=== PATIENT | female | born 1960 | race Caucasian/White ===

== ENCOUNTER 2016-10-22 19:55 | Emergency (ER) | payer OTHER, MEDICARE ==
[~2016-10-22 19:55] MED LIST: ABILIFY10 M1 PO; AMBIEN 10MG10 MG PO; AMOXICILLIN500 M3 PO; CALCIUM 600 +1 EA11 PO; CARVEDILOL6.25 M1 PO; CLEOCIN HCL300 MG PO; CLOPIDOGREL75 M1 PO; COREG3.125 MG PO; DILAUDID2 M1 PO; DOXYCYCLINE HY100 M2 PO; DOXYCYCLINE HY100 M4 PO; EFFEXOR XR150 MG PO; ENDOCET 325 MG-1 TA1 PO; FOLIC ACID 1 MG PO; GABAPENTIN400 M1 PO; GOOD SENSE ASP325 MG PO; HUMALOG100 U/ML SC; HUMALOG100 UNIT/2 SC; HYDROMORPHONE HC2 M1 PO; KEFLEX250 M1 PO; LANTUS SOL100 UNIT/1 SC; LASIX40 M1 PO; LASIX40 MG PO; LEVEMIR100 U/ML SC; LEVEMIR100 UNIT/1 SC; LEVOTHYROXIN0.175 MG PO; LEVOTHYROXINE0.15 MG PO; LEVOTHYROXINE200 MC1 PO; LIPITOR80 M1 PO; LISINOPRIL5 M1 PO; LYRICA100 MG PO; LYRICA150 MG PO; NORCO 325 MG-51 TAB PO; NOVOLOG100 U/ML SC; NOVOLOG100 UNIT/2 SC; OXYCODONE-ACET1 EACH PO; PERCOCET 325 MG1 TA2 PO; PERCOCET 5-3251 EACH PO; POLYTRIM EYE DR10 ML OPH; PRINIVIL20 MG PO; PROTONIX 40MG T40 MG PO; ROCALTROL0.25 MCG PO; TRAMADOL50 MG PO; VENLAFAXINE HC150 MG PO; VENTOLIN HFA18 GM INH; VICODIN5-300 PO; XANAX0.5 MG PO; XANAX2 MG PO; [UNRECOGNIZED DRUG - OTHER] PO
--- NOTE | 2016-10-22 20:01 | ED GENERAL ADULT ---
History of Present Illness General Chief Complaint: Fall Stated Complaint: S/P FALL Source: patient, old records, EMS Exam Limitations: confusion Vital Signs & Intake/Output Vital Signs & Intake/Output Vital Signs Date Time Temp Pulse Resp B/P Pulse O2 O2 Flow FiO2 Ox Delivery Rate 10/224 96.4 64 20 142/70 100 Room Air 10/22 1999 96.8 88 22 146/70 98 Allergies Coded Allergies: NSAIDS (Non-Steroidal Anti-Inflamma (TONGUE SWELLING 01/20/16) ibuprofen (TONGUE SWELLING 01/20/16) codeine ("HEART FEELS FUNNY" 03/12/16) ketorolac (From TORADOL) (NAUSEA 03/12/16) lithium (HALLUCINATIONS 03/12/16) tramadol (vomit 03/12/16) Reconcile Medications Aripiprazole (Abilify) 10 MG TABLET 1 TAB PO DAILY SCHIZOPHRENIA (Reported) Aspirin 325 MG TAB 1 TAB PO DAILY HEART/BLOOD (Reported) Atorvastatin Calcium (Lipitor) 80 MG TAB 1 TAB PO DAILY CHOLESTEROL (Reported ) Calcium Carbonate/Vitamin D3 (Calcium 600 + Vit D 400 Tablet) 1 EACH TABLET 1 TAB PO TID CALCIUM SUPPLEMENT Carvedilol 6.25 MG TABLET 1 TAB PO BID HEART (Reported) CLOPIDOGREL BISULFATE (Clopidogrel) 75 MG TAB 1 TAB PO DAILY BLODOD THINNER ( Reported) Doxycycline Hyclate 100 MG CAPSULE 1 CAP PO BID PERIORBITAL CELLULITIS Furosemide (Lasix) 40 MG TABLET 40 MG PO BID FLUID RETENTION Insulin Aspart (Novolog) 100 UNIT/1 ML VIAL DIABETES (Reported) finger stick glucose units to administer 80 - 150 0 units 151 - 200 2 units 201 - 250 4 units 251 - 300 6 units 301 - 350 8 units 351 - 400 10 units more than 400 mg/dL 12 units and call Insulin Detemir (Levemir) 100 UNIT/1 ML VIAL 30 UNITS SC BID BLOOD SUGARS Levothyroxine Sodium 200 MCG TABLET 1 TAB PO DAILY THYROID (Reported) Lisinopril 5 MG TABLET 5 MG PO DAILY KIDNEY HEALTH Oxycodone HCl/Acetaminophen (Percocet 5-325 MG Tablet) 5 MG-325 MG TABLET 1 TAB PO BID PRN PAIN Polytrim (Polytrim Eye Drops) 10,000 UNIT-1 MG/ML DROPS 1 GTT OPH Q6 CONJUNCTIVITIS Pregabalin (Lyrica) 100 MG CAP 1 CAP PO BID PAIN (Reported) VENLAFAXINE HCL (Venlafaxine HCl ER) 150 MG CER 1 CAP PO DAILY MENTAL HEALTH (Reported) Triage Note: PER PT TRIPPED OVER THINGS ON FLOOR AND NEXT THING SHE REMEMBERS IS WAKING UP WITH FACE AGAINST DOOR. NO OBVIOUS TRAUMA NOTED TO FACE, PT APPEARS ALTERED BUT DENIES DRUG OR ETOH USE, ANSWERS QUESTIONS APPROP, BUT SLOWLY. PT WITH LONG STANDING WOUNDS TO RLE, DRESSING IN PLACE, WOUND CARED FOR BY [facility]. Triage Nurses Notes Reviewed? yes HPI: Patient told EMS that she tripped over her own feet and fell forward and hit her head on the door. Patient is unsure if she lost consciousness. Patient was slightly confused upon EMS arrival. Upon presentation to the emergency room patient does not remember falling. Patient does not think that she had any chest pain or palpitations prior to the episode but is not sure. At the hospital and there is 2017 hours she is confused over recent events. Patient is complaining of right-sided neck pain that increases with movement. There is no radiation. She rates the pain as 7 out of 10. There is no weakness or numbness. The pain is aching in nature. Past History Travel History Traveled to [place] past 21 day No Medical History Any Pertinent Medical History? 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 Other Medical Hx: Polysubstance abuse (heroin, cocaine) History of MRSA: No History of VRE: No History of CDIFF: No Surgical History Surgical History: , knee replacement (left), laminectomy, LEFT bka ( 2013) s/p right TMA s/p thyroidectomy s/p right carpal tunnel surgery s/p bone spur removal left wrist and left heel PTCA WITH STENT Psychosocial History Who do you live with [facility] at Home Nursing What is your primary language French Tobacco Use: Never used ETOH Use: denies use Illicit Drug Use: denies illicit drug use Family History Family History, If Any: Relation not specified for: *No pertinent family history Hx Contributory? No Review of Systems Review of Systems Constitutional: Reports: no symptoms. EENTM: Reports: no symptoms. Respiratory: Reports: no symptoms. Cardiovascular: Reports: no symptoms. GI: Reports: no symptoms. Genitourinary: Reports: no symptoms. Musculoskeletal: Reports: see HPI, neck pain. Skin: Reports: no symptoms. Neurological/Psychological: Reports: no symptoms. Hematologic/Endocrine: Reports: no symptoms. Immunologic/Allergic: Reports: no symptoms. All Other Systems: Reviewed and Negative Physical Exam Physical Exam General Appearance: well developed/nourished, alert, awake, moderate distress Head: atraumatic, normal appearance Eyes: Bilateral: PERRL, EOMI. Ears, Nose, Throat: normal pharynx, normal ENT inspection, hearing grossly normal Neck: normal inspection, supple, tender lateral, no midline tenderness Respiratory: normal breath sounds, chest non-tender, no respiratory distress, lungs clear Cardiovascular: regular rate/rhythm, normal peripheral pulses Gastrointestinal: normal bowel sounds, soft, non-tender Back: normal inspection, normal range of motion Extremities: normal inspection, normal capillary refill, normal range of motion, no edema, LEFT bka Neurologic/Psych: no motor/sensory deficits, awake, alert, oriented x 3, SEE HPI Skin: intact, normal color Core Measures ACS in differential dx? Yes ASA ordered for poss ACS? No-ACS ruled out CVA/TIA Diagnosis: No Severe Sepsis Present: No Septic Shock Present: No Progress Differential Diagnoses I considered the following diagnoses in my evaluation of the patient: [Head injury, ICH, cervical fracture, electrolyte abnormality, DKA, drug intoxication, alcohol intoxication] Plan of Care: Orders Procedure Date/time Status Telemetry/Semiconductor Engineer 10/22 2000 Active URINE DRUGS OF ABUSE 10/22 2000 Complete URINALYSIS 10/22 2000 Complete TROPONIN LEVEL 10/22 2000 Complete ETHANOL 10/22 2000 Complete COMPREHENSIVE METABOLIC PANEL 10/22 2000 Complete CBC WITHOUT DIFFERENTIAL 10/22 2000 Complete EKG 10/22 2000 Active Laboratory Tests 10/22/16 2100: Urine Opiates Screen 242.00, Methadone Screen 41, Barbiturate Screen < 60, Ur Phencyclidine Scrn 6.20, Amphetamines Screen < 100, U Benzodiazepines Scrn > 800 H, Urine Cocaine Screen < 50, Urine Cannabis Screen < 5.00, Urine Color YEL, Urine Clarity CLEAR, Urine pH 6.0, Ur Specific [place] >= 1.030, Urine Protein 100 H, Urine Ketones NEG, Urine Nitrite NEG, Urine Bilirubin NEG, Urine Urobilinogen 0.2, Ur Leukocyte Esterase NEG, Ur Microscopic SEDIMENT EXAMINED, Urine RBC FEW H, Urine WBC RARE, Ur Epithelial Cells OCCAS, Urine Crystals TALC , Hyaline Casts FEW H, Urine Hemoglobin NEG, Urine Glucose NEG 10/22/16 2040: Anion Gap 9, Estimated GFR 36 L, BUN/Creatinine Ratio 34.7 H, Glucose 178 H, Calcium 8.1 L, Total Bilirubin 0.3, AST 19, ALT 28, Alkaline Phosphatase 128 H , Troponin I < 0.01, Total Protein 6.0 L, Albumin 2.9 L, Globulin 3.1, Albumin /Globulin Ratio 0.9 L, RBC 3.23 L, MCV 81.0, MCH 26.7 L, RDW 16.5 H, MPV 10.1, Gran % 65.0, Lymphocytes % 23.4, Monocytes % 7.9, Eosinophils % 3.0, Basophils % 0.7, Absolute Granulocytes 4.2, Absolute Lymphocytes 1.5, Absolute Monocytes 0.5, Absolute Eosinophils 0.2, Absolute Basophils 0, PUBS MCHC 32.9 L , Serum Alcohol < 10.0 Diagnostic Imaging: Viewed by Me: Radiology Read, CT Scan. Discussed w/RAD: Radiology Read, CT Scan. Radiology Impression: PATIENT: JOSE E SANCHEZ PRESENT AGE: 56 PATIENT ACCOUNT NO: [id number] : 62 LOCATION: [facility] ORDERING PHYSICIAN: MIREYA ROCK MD SERVICE DATE: 10/22/16 EXAM TYPE: CAT - CT CERV SPINE WO IV CONTRAST; CT HEAD WO IV CONTRAST EXAMINATION: CT HEAD CT CERVICAL SPINE CLINICAL INFORMATION: Fall. Head injury. COMPARISON: CT scans . TECHNIQUE: Axial noncontrast images of the head and cervical spine were obtained. Reformatted images were reviewed. DLP 896. FINDINGS: Head CT: Mildly limited examination secondary to technical factors. No intracranial hemorrhage or territorial infarction. No extra-axial fluid collection. No mass effect or midline shift. No hydrocephalus. No calvarial fracture is demonstrated. Paranasal sinuses and mastoid air cells are aerated. Cervical spine CT: No fracture or dislocation. No evidence of traumatic spondylolisthesis. No prevertebral soft tissue swelling. No widening of the atlantoaxial interval. There is a tiny calcific focus adjacent to the T1 vertebral body which is age- indeterminate but favored to be chronic. Mild multilevel degenerative endplate changes. Surgical clips about the thyroid bed. Nonspecific intraluminal material within the upper esophagus. IMPRESSION: 1. No acute intracranial pathology demonstrated. 2. No acute cervical spine pathology. 3. Nonspecific intraluminal material versus polypoid soft tissue within the upper esophagus. This could be further evaluated with nonemergent barium swallow or consider nonemergent ENT consultation. DICTATED BY: TOMMY DEAN MD DATE/TIME DICTATED:10/22/162146 CHAIR CANER:WYATT DATE/TIME TRANSCRIBED:10/22/162146 CONFIDENTIAL, DO NOT COPY WITHOUT APPROPRIATE AUTHORIZATION. <Electronically signed in Other Vendor System> SIGNED BY: TOMMY DEAN MD 10/22/162157, PATIENT: JOSE E SANCHEZ PRESENT AGE: 56 PATIENT ACCOUNT NO: [id number] : 62 LOCATION: [facility] ORDERING PHYSICIAN: MIREYA ROCK MD SERVICE DATE: 10/22/16 EXAM TYPE: RAD - XRY-AP PELVIS EXAMINATION: XR PELVIS CLINICAL INFORMATION: Pelvic pain after fall COMPARISON: CT 08/11/2016 TECHNIQUE: AP view of the pelvis. FINDINGS: Assessment is somewhat limited due to patient positioning, especially of the proximal right femur. Alignment across the hips is anatomic, with mild degenerative change noted. No definite acute fracture. The sacroiliac joints are intact. IMPRESSION: Suboptimal assessment of the right hip due to patient positioning; if clinically warranted, this may be further assessed with right hip radiographs. Otherwise, no acute findings identified. DICTATED BY: ED AUGUSTINE MD DATE/TIME DICTATED:10/22/162308 CHAIR CANER:WYATT DATE/TIME TRANSCRIBED:10/22/162308 CONFIDENTIAL, DO NOT COPY WITHOUT APPROPRIATE AUTHORIZATION. <Electronically signed in Other Vendor System> SIGNED BY: ED AUGUSTINE MD 10/22/16 4306 Initial ED EKG: NSR, nonspecific ST T wave chg Prior EKG: unchanged Rhythm Strip: normal sinus rhythm Comments: Patient states that she takes her medications only as prescribed. Patient states that her nerves put her medications out on a daily basis and she takes them only as her nurse tells her to. Patient ambulated in the emergency department with the usual walker. Patient uses a walker at home. Patient is alert and oriented 3. Patient now remembers falling and hitting her head. Patient denies any chest pain or palpitations. Departure Departure Disposition: HOME OR SELF CARE Condition: Stable Clinical Impression Primary Impression: Head injury Secondary Impressions: Cervical strain Referrals: ADE MCGINNIS,KHUSHBU Lau (PCP/Family) Additional Instructions: RETURN IF SYMPTOMS WORSEN OR FOR ANY CONCERNS Departure Forms: Customer Survey General Discharge Information Critical Care Note Critical Care Note Critical Care Time: non-applicable
[2016-10-22 21:17] LABS: ABSOLUTE BASOPHIL COUNT 0 /CUMM (0.0-0.2); ABSOLUTE EOSINOPHIL COUNT 0.2 /CUMM (0.0-0.7); ABSOLUTE GRANULOCYTE CT 4.2 /CUMM (1.4-6.5); ABSOLUTE LYMPH COUNT 1.5 /CUMM (1.2-3.4); ABSOLUTE MONOCYTE COUNT 0.5 /CUMM (0.10-0.60); BASOPHIL % 0.7 % (0.0-2.0); HEMATOCRIT 26.2 % (37-47); MEAN CORPUSCULAR HGB 26.7 PG (27.0-31.0); MEAN CORPUSCULAR HGB CONC 32.9 G/DL (33.0-37.0); MEAN PLATELET VOLUME 10.1 FL (7.4-10.4); PLATELET COUNT 155 /CUMM (130-400); RBC DISTRIBUTION WIDTH 16.5 % (11.5-14.5); RED BLOOD CELL CT 3.23 /CUMM (4.20-5.40); WHITE BLOOD CELL COUNT 6.4 /CUMM (4.8-10.8)
--- NOTE | 2016-10-22 21:58 | CT SCAN REPORT ---
EXAMINATION: CT HEAD CT CERVICAL SPINE CLINICAL INFORMATION: Fall. Head injury. COMPARISON: CT scans 04/23/2016. TECHNIQUE: Axial noncontrast images of the head and cervical spine were obtained. Reformatted images were reviewed. DLP 896. FINDINGS: Head CT: Mildly limited examination secondary to technical factors. No intracranial hemorrhage or territorial infarction. No extra-axial fluid collection. No mass effect or midline shift. No hydrocephalus. No calvarial fracture is demonstrated. Paranasal sinuses and mastoid air cells are aerated. Cervical spine CT: No fracture or dislocation. No evidence of traumatic spondylolisthesis. No prevertebral soft tissue swelling. No widening of the atlantoaxial interval. There is a tiny calcific focus adjacent to the T1 vertebral body which is age-indeterminate but favored to be chronic. Mild multilevel degenerative endplate changes. Surgical clips about the thyroid bed. Nonspecific intraluminal material within the upper esophagus. IMPRESSION: 1. No acute intracranial pathology demonstrated. 2. No acute cervical spine pathology. 3. Nonspecific intraluminal material versus polypoid soft tissue within the upper esophagus. This could be further evaluated with nonemergent barium swallow or consider nonemergent ENT consultation.
--- NOTE | 2016-10-22 22:22 | RADIOLOGY REPORT ---
EXAMINATION: XR PORTABLE CHEST CLINICAL INFORMATION: Chest pain. COMPARISON: Thoracic imaging 08/11/2016. TECHNIQUE: Portable view of the chest was obtained. FINDINGS: No new significant abnormality is noted involving the heart, lungs, mediastinum, bony thorax or soft tissues. IMPRESSION: No acute pulmonary pathology demonstrated.
--- NOTE | 2016-10-22 23:16 | RADIOLOGY REPORT ---
EXAMINATION: XR PELVIS CLINICAL INFORMATION: Pelvic pain after fall COMPARISON: CT 08/11/2016 TECHNIQUE: AP view of the pelvis. FINDINGS: Assessment is somewhat limited due to patient positioning, especially of the proximal right femur. Alignment across the hips is anatomic, with mild degenerative change noted. No definite acute fracture. The sacroiliac joints are intact. IMPRESSION: Suboptimal assessment of the right hip due to patient positioning; if clinically warranted, this may be further assessed with right hip radiographs. Otherwise, no acute findings identified.
[2016-10-23 07:54] VITALS: BP 150/68
== END 2016-10-23 08:14 ==
LOC: ERH 19:55
PROVIDERS: Emergency Medicine
DX: S09.90XA Unspecified injury of head, initial encounter (principal); S16.1XXA Strain of muscle, fascia and tendon at neck level, initial encounter; I25.10 Atherosclerotic heart disease of native coronary artery without angina pectoris; E10.9 Type 1 diabetes mellitus without complications; F11.10 Opioid abuse, uncomplicated; F14.10 Cocaine abuse, uncomplicated; W01.0XXA Fall on same level from slipping, tripping and stumbling without subsequent striking against object, initial encounter
CPT/HCPCS: 72170; 80307; 81001; 93005; 93010; G0480

== ENCOUNTER 2017-03-06 15:10 | Inpatient (IN) | payer OTHER, MEDICARE ==
[~2017-03-06] VITALS: Ht 160 cm; Wt 111.6 kg
--- NOTE | 2017-03-06 16:13 | ED GENERAL ADULT ---
History of Present Illness General Chief Complaint: General Adult Stated Complaint: FEVER?, INFEC? Source: patient Exam Limitations: no limitations Vital Signs & Intake/Output Vital Signs & Intake/Output Vital Signs Date Time Temp Pulse Resp B/P B/P Pulse O2 O2 Flow FiO2 Mean Ox Delivery Rate 03/06 1834 99.6 104 18 121/58 99 Room Air 03/06 1516 97.9 104 18 137/83 99 Room Air Allergies Coded Allergies: NSAIDS (Non-Steroidal Anti-Inflamma (TONGUE SWELLING 01/20/16) ibuprofen (TONGUE SWELLING 01/20/16) codeine ("HEART FEELS FUNNY" 03/12/16) ketorolac (From TORADOL) (NAUSEA 03/12/16) lithium (HALLUCINATIONS 03/12/16) tramadol (vomit 03/12/16) Reconcile Medications Alprazolam 2 MG TABLET 1 TAB PO TID ANXIETY (Reported) Aripiprazole (Abilify) 10 MG TABLET 1 TAB PO DAILY SCHIZOPHRENIA (Reported) Atorvastatin Calcium (Lipitor) 80 MG TABLET 1 TAB PO DAILY CHOLESTEROL ( Reported) Calcium Carbonate/Vitamin D3 (Calcium 600 + Vit D 400 Tablet) 1 EACH TABLET 1 TAB PO TID CALCIUM SUPPLEMENT Carvedilol 6.25 MG TABLET 1 TAB PO BID HEART (Reported) Clopidogrel Bisulfate (Clopidogrel) 75 MG TABLET 1 TAB PO DAILY BLOOD THINNER (Reported) Furosemide (Lasix) 40 MG TABLET 40 MG PO BID FLUID RETENTION Insulin Detemir (Levemir) 100 UNIT/1 ML VIAL 30 UNITS SC BID BLOOD SUGARS Insulin Lispro (Humalog) 100 UNIT/ML VIAL DM (Reported) Levothyroxine Sodium 200 MCG TABLET 1 TAB PO DAILY THYROID (Reported) Lisinopril 5 MG TABLET 5 MG PO DAILY KIDNEY HEALTH Metoprolol Tartrate 50 MG TABLET 1 TAB PO DAILY HEART/BP (Reported) Mirtazapine 15 MG TABLET 1 TAB PO QPM MENTAL HEALTH (Reported) Oxycodone HCl 10 MG TABLET 1 TAB PO 4XDAILY PAIN (Reported) Venlafaxine HCl (Venlafaxine HCl ER) 150 MG CAP.ER.24H 2 CAP PO DAILY MENTAL HEALTH (Reported) Zolpidem Tartrate 10 MG TABLET 1 TAB PO QPM SLEEP (Reported) Triage Note: PT TO ED FROM WOUND CARE CLINIC FOR SUBJECTIVE FEVER AND PAIN IN R LEG. Triage Nurses Notes Reviewed? yes Onset: Abrupt Duration: day(s): Timing: recent history HPI: 03/06/17 56-year-old female presents to the emergency department complaining of right leg pain and fever. The patient states she has a history of insulin-dependent diabetes, peripheral vascular disease, acute kidney injury, coronary artery disease and is status post [place]. She presents with ongoing right sided lower extremity pain with redness. She was seen in the wound clinic earlier today and was referred for admission. The onset of the symptoms was abrupt, the duration has been days, the severity is significant; as her symptoms required her to come to the emergency department for care. Past History Travel History Traveled to [place] past 21 day No Medical History Any Pertinent Medical History? 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 Other Medical Hx: Polysubstance abuse (heroin, cocaine) History of MRSA: No History of VRE: No History of CDIFF: No Surgical History Surgical History: , knee replacement (left), laminectomy, LEFT bka ( 2013) s/p right TMA s/p thyroidectomy s/p right carpal tunnel surgery s/p bone spur removal left wrist and left heel PTCA WITH STENT Psychosocial History Who do you live with [facility] at Home Nursing What is your primary language Sinhala Tobacco Use: Quit >30 days ago Daily Tobacco Use Amount/Type: => 5 Cigarettes daily ETOH Use: occasional use Illicit Drug Use: denies illicit drug use Family History Family History, If Any: Relation not specified for: *No pertinent family history Hx Contributory? No Review of Systems Review of Systems Constitutional: Reports: fever. EENTM: Reports: no symptoms. Respiratory: Denies: short of breath. Cardiovascular: Denies: chest pain. GI: Denies: abdominal pain. Genitourinary: Reports: no symptoms. Musculoskeletal: Reports: see HPI. Skin: Reports: see HPI. Neurological/Psychological: Reports: no symptoms. Hematologic/Endocrine: Reports: no symptoms. Immunologic/Allergic: Reports: no symptoms. Physical Exam Physical Exam General Appearance: alert, awake, anxious Head: atraumatic, normal appearance Eyes: Bilateral: normal appearance, PERRL, EOMI. Ears, Nose, Throat: normal pharynx, normal ENT inspection Neck: normal inspection, supple, full range of motion Respiratory: normal breath sounds, chest non-tender, no respiratory distress Cardiovascular: regular rate/rhythm Peripheral Pulses: 4+ dorsalis pedis (R) Gastrointestinal: soft, non-tender Back: normal range of motion Extremities: swelling, tenderness Neurologic/Psych: no motor/sensory deficits, awake, alert, oriented x 3 Skin: rash Comments: 03/06/17 4:51 The patient has tracking erythema up from her right leg on the anterior tibial region. There is an abrasion in the proximal tibia and an ulceration in the anterior lower tibia. She status post amputation of all the toes of the right foot. There is also a laceration to the bottom of the right foot. The left lower extremity she has a below knee amputation Core Measures ACS in differential dx? No CVA/TIA Diagnosis: No Severe Sepsis Present: No Septic Shock Present: No Progress Differential Diagnoses I considered the following diagnoses in my evaluation of the patient: [ celluilitis, osteomyelitis, sepsis] Plan of Care: Orders Procedure Date/time Status Heart Healthy Diet 03/07 B Active Admit to inpatient 03/06 1952 Active Vital Signs 03/06 1952 Active Code Status 03/06 1952 Active Add-on Test (ER Only) 03/06 1659 Active URINALYSIS 03/06 1654 Active EKG 03/06 1654 Active LACTIC ACID 03/06 163 Complete BLOOD CULTURE 03/06 1615 Active COMPREHENSIVE METABOLIC PANEL 03/06 161 Complete CBC WITHOUT DIFFERENTIAL 03/06 1615 Complete Current Medications Sig/Jesse Start time Last Medication Dose Stop Time Status Admin Sodium Chloride 1,000 ML BOLUS ONE 03/06 2000 UNVr (Normal Saline 0.9%) 03/06 2059 Sodium Chloride 1,000 ML BOLUS ONE 03/06 2000 UNVr (Normal Saline 0.9%) 03/06 2059 Laboratory Tests 03/06/17 1954: Lactic Acid Cancelled 03/06/17 1654: Lactic Acid Cancelled 03/06/17 1630: Anion Gap 10, Estimated GFR 26 L, BUN/Creatinine Ratio 18.0, Glucose 59 L, Lactic Acid 1.7, Calcium 7.8 L, Total Bilirubin 0.4, AST 31, ALT 59 H, Alkaline Phosphatase 159 H, Total Protein 6.0 L, Albumin 3.1 L, Globulin 2.9, Albumin/Globulin Ratio 1.1, CBC w Diff MAN DIFF ORDERED, RBC 4.17 L, MCV 82.3, MCH 27.0, RDW 14.5, MPV 8.6, Gran % 87.0 H, Lymphocytes % 6.9 L, Monocytes % 4.7, Eosinophils % 0.6, Basophils % 0.8, Absolute Granulocytes 22.8 H, Absolute Lymphocytes 1.8, Absolute Monocytes 1.2 H, Absolute Eosinophils 0.2, Absolute Basophils 0.2, Platelet Estimate ADEQUATE, Normocytic RBCs VERIFIED, Normochromic RBCs VERIFIED, PUBS MCHC 32.8 L Microbiology 03/06 1800 BLOOD: Blood Culture - RECD 03/06 1654 BLOOD: Blood Culture - CAN Cancelled: Cancelled via OE: Per MD Decision 03/06 1630 BLOOD: Blood Culture - RECD 03/06 0000 BLOOD: Blood Culture - CAN Cancelled: Cancelled via OE: Per MD Decision Initial ED EKG: sinus tach, LVH Prior EKG: unchanged Departure Departure Disposition: STILL A PATIENT Condition: Stable Clinical Impression Primary Impression: Cellulitis Referrals: ADE MCGINNIS,KHUSHBU Lau (PCP/Family) Departure Forms: Customer Survey General Discharge Information Admission Note Spoke With: KENDALL BLANK MD Documentation of Exam: Documentation of any treatments & extenuating circumstances including Concerns Regarding Discharge (functional status, medication knowledge or non-compliance, living conditions, etc.) that warrant an admission rather than observation: [She needs admission for IV antibiotics, IV fluids, serial lactic acid levels] Critical Care Note Critical Care Note Critical Care Time: non-applicable
[2017-03-06] MEDS ORDERED: MIRTAZAPINE15 M2 PO (16:28)
[2017-03-06] MEDS ORDERED: OXYCODONE HCL10 M2 PO (16:29)
[2017-03-06] MEDS ORDERED: METOPROLOL TART50 M1 PO (16:29)
[2017-03-06] MEDS ORDERED: HUMALOG100 UNIT/2 SC (16:29)
[2017-03-06] MEDS ORDERED: ALPRAZOLAM2 M2 PO (16:30)
[2017-03-06] MEDS ORDERED: ZOLPIDEM TARTRA10 M1 PO (16:30)
[2017-03-06 16:45] LABS: ABSOLUTE BASOPHIL COUNT 0.2 /CUMM (0.0-0.2); ABSOLUTE EOSINOPHIL COUNT 0.2 /CUMM (0.0-0.7); ABSOLUTE GRANULOCYTE CT 22.8 /CUMM (1.4-6.5); ABSOLUTE LYMPH COUNT 1.8 /CUMM (1.2-3.4); ABSOLUTE MONOCYTE COUNT 1.2 /CUMM (0.10-0.60); BASOPHIL % 0.8 % (0.0-2.0); EOSINOPHIL % 0.6 % (0-5); HEMATOCRIT 34.3 % (37-47); MEAN CORPUSCULAR HGB CONC 32.8 G/DL (33.0-37.0); MEAN CORPUSCULAR VOLUME 82.3 FL (81.0-99.0); MEAN PLATELET VOLUME 8.6 FL (7.4-10.4); PLATELET COUNT 239 /CUMM (130-400); RBC DISTRIBUTION WIDTH 14.5 % (11.5-14.5); RED BLOOD CELL CT 4.17 /CUMM (4.20-5.40); WHITE BLOOD CELL COUNT 26.2 /CUMM (4.8-10.8)
--- NOTE | 2017-03-06 17:29 | RADIOLOGY REPORT ---
EXAMINATION: 1. Right foot. 2. Right tibia and fibula. CLINICAL INFORMATION: Fever. Rash. Concern for osteomyelitis. COMPARISON: Right foot 03/12/2016. TECHNIQUE: 1. Right foot. 4 views. 2. Right tibia-fibula. 2 views. FINDINGS: 1. Right foot. Stable postsurgical changes of the right foot with multiple amputations. Great toe amputated at the proximal metatarsal. The second, third and fourth toe amputated at the metatarsophalangeal joint. The fifth toe amputated at the distal fifth metatarsal. These changes are chronic stable since the exam of 03/12/2016. No acute abnormality. No bone destruction or periosteal reaction. No radiographic evidence for osteomyelitis. There is flattening of plantar arch. There is joint narrowing of the tarsal joints. 2. Right tibia-fibula. No bone destruction. No radiographic evidence for osteomyelitis. No periosteal reaction. Degenerative joint disease of the knee with joint space narrowing femoral tibial joint and patellofemoral joints and marginal spur spurs. IMPRESSION: 1. Right foot. No acute change. No radiographic evidence for osteomyelitis. Stable postsurgical multiple amputations of toes. 2. Right tibia-fibula. No radiographic evidence for osteomyelitis. No acute abnormality.
--- NOTE | 2017-03-06 20:41 | History & Physical ---
KATH MCGINNIS,DAVIDReed 03/06/172035: General Information and HPI MD Statement: I have seen and personally examined JOSE E SANCHEZ and documented this H&P. The patient is a 56 year old F who presented with a patient stated chief complaint of [fever and infection]. 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 She states that she went to routine wound care and was evaluated by Dr. Coleman and was told to come to the emergency room. SHe states that she had a fever of 102 while she was at wound care. No cp, sob, N,V, abdoinal pain, diarrhea, constipation, new rash, sick contacts. She has noted a painful calf since this morning and she has noted worsening erythema today as well. States she has some difficulty ambulating for the past few days but she noted acute worsening of her symptoms today. Additionally, she noted some bloody discharge from some wounds in her RLE, no ela purulence. Allergies/Medications Allergies: Coded Allergies: NSAIDS (Non-Steroidal Anti-Inflamma (TONGUE SWELLING 01/20/16) ibuprofen (TONGUE SWELLING 01/20/16) codeine ("HEART FEELS FUNNY" 03/12/16) ketorolac (From TORADOL) (NAUSEA 03/12/16) lithium (HALLUCINATIONS 03/12/16) tramadol (vomit 03/12/16) Home Med list Alprazolam 2 MG TABLET 1 TAB PO TID ANXIETY (Reported) Aripiprazole (Abilify) 10 MG TABLET 1 TAB PO DAILY SCHIZOPHRENIA (Reported) Atorvastatin Calcium (Lipitor) 80 MG TABLET 1 TAB PO DAILY CHOLESTEROL ( Reported) Calcium Carbonate/Vitamin D3 (Calcium 600 + Vit D 400 Tablet) 1 EACH TABLET 1 TAB PO TID CALCIUM SUPPLEMENT Carvedilol 6.25 MG TABLET 1 TAB PO BID HEART (Reported) Clopidogrel Bisulfate (Clopidogrel) 75 MG TABLET 1 TAB PO DAILY BLOOD THINNER (Reported) Furosemide (Lasix) 40 MG TABLET 40 MG PO BID FLUID RETENTION Insulin Detemir (Levemir) 100 UNIT/1 ML VIAL 30 UNITS SC BID BLOOD SUGARS Insulin Lispro (Humalog) 100 UNIT/ML VIAL DM (Reported) Levothyroxine Sodium 200 MCG TABLET 1 TAB PO DAILY THYROID (Reported) Lisinopril 5 MG TABLET 5 MG PO DAILY KIDNEY HEALTH Metoprolol Tartrate 50 MG TABLET 1 TAB PO DAILY HEART/BP (Reported) Mirtazapine 15 MG TABLET 1 TAB PO QPM MENTAL HEALTH (Reported) Oxycodone HCl 10 MG TABLET 1 TAB PO 4XDAILY PAIN (Reported) Venlafaxine HCl (Venlafaxine HCl ER) 150 MG CAP.ER.24H 2 CAP PO DAILY MENTAL HEALTH (Reported) Zolpidem Tartrate 10 MG TABLET 1 TAB PO QPM SLEEP (Reported) Compliance With Home Meds: UNKNOWN Past History Travel History Traveled to [place] past 21 day No Medical History Neurological: NONE EENT: tonsil infections Cardiovascular: CAD (s/p stent), myocardial infarction (w/ stent), DVT Respiratory: NONE, Gastrointestinal: NONE Hepatic: NONE Renal: chronic kidney disease, patient has nephrotic range proteinuria which may be due to diabetes or hepatitis C Musculoskeletal: fracture, osteoarthritis, BULGING DISK L4/L5 OSTEOMYELITIS Psychiatric: anxiety, bipolar disease, depression Endocrine: diabetes (type 1, insulin-dep), hypothyroidism Blood Disorders: HEP C Cancer(s): thyroid 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 roommate Services at Home: Nursing Primary Language: Luxembourger ETOH Use: occasional use Illicit Drug Use: denies illicit drug use Functional Ability ADLs Independent: dressing, eating, toileting, bathing. Ambulation: independent IADLs Independent: shopping, housework, finances, food prep, telephone, transportation , medication admin. Review of Systems Review of Systems Constitutional: Reports: see HPI. Exam & Diagnostic Data Last 24 Hrs of Vital Signs/I&O Vital Signs Date Time Temp Pulse Resp B/P B/P Pulse O2 O2 Flow FiO2 Mean Ox Delivery Rate 03/06 1834 99.6 104 18 121/58 99 Room Air 03/06 1516 97.9 104 18 137/83 99 Room Air Intake & Output 03/06 1600 03/06 0800 03/06 0000 Intake Total Output Total Balance Patient 111.584 kg Weight Weight Reported by Patient Measurement Method Physical Exam General Appearance Alert, Oriented X3, Cooperative, No Acute Distress Skin has chronic skin changes in her RLE. Erythematous. Some scabbed over lesions in RLE. HEENT Atraumatic, PERRLA, EOMI, Mucous Membr. moist/pink Neck Supple Cardiovascular Regular Rate, Normal S1, Normal S2, No Murmurs Lungs Clear to Auscultation Abdomen Soft, No Tenderness Extremities LLE with prosthesis RLE with erytejma up to knee, some chronic changes as well as scabbed over lesions. Assessment/Plan Assessment: This is a 56-year-old female past medical history significant for IDDM, PVD, CAD status post MO and stent, bipolar, right lower extremity osteoporosis status post amputation of all extremity digits, CK 80, BKA and left lower extremity, thyroid cancer status post thyroidectomy, who was sent in by wound care for fever and worsening lower extremity erythema and pain concerning for cellulitis vs osteomyelitis. As such, patient will be admitted to general medicine floor for further workup and management ED workup shows: Vitals: 97.9, 99.6, 104, 18, 137/83, N percent on room air. CBC:White count 26.2, hemoglobin 11.3, hematocrit 34.3, platelet 239. BEP: Sodium 135, BUN 36, creatinine 2.0. Glucose 59, calcium 7.8, ALT 59, alkaline phosphatase 159, lactic acid 1.7 Negative tibia and fibula x-ray And negative foot x-ray EKG: Normal sinus rhythm with heart rate 103, QTC 482 PLAN Sepsis 2/2 Cellulitis: Patient comes in with erythematous warm extremity with increasing pain. Additionally she had MAXIMUM TEMPERATURE of 102 and wound care. Note that patient has had several admissions for similar chief complaint. In 2016 she was here on April 28 and April 19 for similar chief complaint. Patient has white count of 26.2, has tachycardia, and source of infection is cellulitis, which qualifies her for sepsis secondary to cellulitis. Peritubular , fibula x-ray and foot x-ray negative for evidence of osteomyelitis. Lactic acid 1.7 * IV Unasyn for antibiotic as patient is diabetic * Podiatry consult * Consider MRI if there is persistent concern for osteomyelitis * Venous ultrasound for lower extremity * Gentle hydration AK I on CK D: Patient comes in creatinine of 2. Previous values vary for the most part between 1.5 and 2.8. She has known kidney disease likely secondary to diabetes and hepatitis C. * Gentle hydration * Monitor creatinine CAD: Chronic and stable * Continue atorvastatin 80 mg * Continue Lopressor 50 mg by mouth daily * Continue Plavix 75 mg by mouth daily Hypothyroidism: Chronic and stable * Continue Synthroid 0.2 mg by mouth daily Bipolar/depression/insomnia: * Continue Abilify 10 mg by mouth daily * Continue venlafaxine 150 mg by mouth daily * Continue Ambien 10 mg by mouth every afternoon * Continue Remeron 50 mg by mouth every afternoon * Continue Xanax 2 mg by mouth 3 times a day Diabetes Mellitus: Chronic and stable * Regular insulin sliding scale * Fingerstick * Diabetic diet Full code Chemical DVT prophylaxis Heart healthy diet As Ranked By This Provider Problem List: 1. Cellulitis of leg Core Measures/Miscellaneous Acute Coronary Syndrome ACS Diagnosis: No Cerebrovascular Accident CVA/TIA Diagnosis: No Congestive Heart Failure CHF Diagnosis: No Venous Thromboembolism VTE Risk Factors: Acute medical illness, Age > 40 No [facility] VTE prophylaxis d/t: No contraindications No VTE Pharm Prophylaxis d/t: No contraindications VTE Diagnosis: No VTE Type: NONE VTE Confirmed by (Test): NONE Severe Sepsis Severe Sepsis Present: No Septic Shock Septic Shock Present: No Miscellaneous Documentation Attending Case Discussed With: KENDALL BLANK MD Primary Care Physician: KHUSHBU BOOKER MD Patient sees these Specialists UNKNOWN Level of Patient Care: General Medicine AC GEORGES MD,JACQUE 03/06/172125: Resident Review Statement Resident Statement: examined this patient, discussed with internal grinder tender, agreed with internal grinder tender, discussed with family Other Findings: 56-year-old female with past medical history significant for peripheral vascular disease, insulin-dependent diabetes mellitus, below knee amputation of the left lower extremity in 2013, coronary artery disease status post stenting, bipolar disorder, depression, chronic kidney disease, right lower extremity status post toe amputation, history of thyroid cancer status post thyroidectomy, was sent to emergency department after evaluation by Dr. zafar and she was found to have a fever of 102 [facility] Vitals in emergency department patient had a MAXIMUM TEMPERATURE of 99.6, tachycardia, no tachypnea, systolic blood pressure 121-137 and diastolic 58-83, oxygen saturation of 99-98% on room air. On examination patient alert and oriented not in mild distress, lying on the bed. Pertinent examination included right lower extremity erythema and swelling , with skin breakdown, at 3 different points and on plantar surface. Reddish fluid oozing out from skin breakdown. S1 and S2 audible without any murmurs, overall clear lungs, benign abdominal and grossly intact neurological examination. Significant labs include leukocytosis of 26.2, chronic anemia, mild hyponatremia , chronic kidney disease, BUN of 36 and creatinine of 2, Imaging shows No acute change. No radiographic evidence for osteomyelitis. Stable postsurgical multiple amputations of toes. Right tibia-fibula. No radiographic evidence for osteomyelitis. She was admitted on general medicine floor for the management of following problems Sepsis/cellulitis/leukocytosis Patient meets the criteria for sepsis most likely secondary to soft tissue infection/cellulitis. Patient received 2.5 L of normal saline in emergency department and her blood pressure remained stable. Patient was started on continuous IV hydration. Given the history of diabetes and recurrent soft tissue/skin infections, concern for polymicrobial organisms is valid. Blood cultures obtained. We will continue to treat this patient with Unasyn for now. Lactic acid was 1.7 at admission. Right leg elevation. Podiatry consult in AM. Chronic CKD and DM Patient past medical history significant for chronic kidney disease most likely secondary to uncontrolled diabetes mellitus. We will recheck the BEP tomorrow morning after IV hydration. Accu-Cheks and insulin sliding scale along with long-acting insulin. Patient is on heparin for DVT prophylaxis Patient is on diabetic diet Patient is on pain pathway Patient is full code KENDALL BLANK 03/07/17 0419: Attending MD Review Statement Attending Statement Attending MD Statement: examined this patient, discuss w/resident/PA/SUPPLY AIDE, agreed w/resident/PA/SUPPLY AIDE, reviewed EMR data (avail), reviewed images, amended to note Attending Assessment/Plan: CC: Right lower extremity pain, redness PMH: DM, S/P thyroidectomy with hypothyroidism, history of osteomyelitis S/P BKA left, right toe amputation, CKD, history of DVT, history of anxiety and bipolar disorder, S/P right lower extremity angioplasty last week, CAD S/P stent, hep C Patient states that she went to regular follow-up for wound care clinic when she was found to have increased redness and swelling of the right lower extremity. Patient states that she noticed that redness, pain, swelling today, was ambulating well until yesterday. She had some subjective fever and elevated temperature at wound care clinic of 100.2. Denies any trauma, chest pain, palpitations, nausea vomiting or loss of consciousness. Vitals: T max 99.6, pulse 104, RR 18, blood pressure 137/83, saturating well on room air. On exam: A O 3, cooperative, no acute distress, neck supple, JVD normal, no lymphadenopathy, mucosa moist, no focal neurological deficit, left BKA, right transverse metatarsal amputation: Tenderness, erythema, swelling, increased warmth right calf present, superficial wounds on rojas of tibia without pus discharge, no obvious fluctuation or boggy sensation for fluid collection. CVS: S1-S2, RRR. RS: Clear to auscultate bilaterally. Abdomen: Soft, NT, ND, bowel sounds present. Labs: WBC 26.2, neutrophils 87%, hemoglobin 11.3, hematocrit 34.3, sodium 135, potassium 3.9, chloride 101, bicarbonate 23, anion gap 10, BUN 36, creatinine 2.0, glucose 59, calcium 7.8, ALT 59, alkaline phosphatase 159, albumin 3.1, lactate 1.7 X-ray right foot, x-ray right tibia-fibula: 1. Right foot. No acute change. No radiographic evidence for osteomyelitis. Stable postsurgical multiple amputations of toes. 2. Right tibia-fibula. No radiographic evidence for osteomyelitis. No acute abnormality. Doppler right lower extremity: Normal right lower leg venous study. No evidence of DVT. A and P 46 year old female with multiple comorbidities including diabetes hypertension hypothyroidism PAD poor wound healing and osteomyelitis came for right lower extremity redness, warmth, increased swelling, tenderness along with subjective fever. Patient was found to have significant leukocytosis in ER with elevated creatinine, normal anion gap with lactate at 1.7. Patient appears to have cellulitis of the right lower extremity. Recently underwent angioplasty for same extremity. She also has superficial wounds on rojas which does not show any pus discharge. No obvious fluctuation or boggy sensation for pus collection. Patient had diastolic dysfunction on echocardiogram done on March 27 and significant coronary artery disease, currently blood pressure is maintained, have to be for cautious for fluid replacement. + Right lower extremity cellulitis + Sepsis secondary to cellulitis + MORAIMA on CKD + History of PAD/CVI + History of osteomyelitis, DVT, anxiety bipolar disorder, DM, hypothyroidism, HTN, CAD, hep C - Admit to general medicine - Blood cultures - Continue Unasyn - Podiatry consult in a.m. - Wound care consult - Hold her Lasix and lisinopril - Continue gentle hydration at 75 mL per hour normal saline - Repeat CBC BMP in a.m. - Check CPK - Adequate pain control - Continue basal and sliding scale insulin - Continue alprazolam, Abilify, atorvastatin, Plavix, Synthroid, metoprolol, mirtazapine, venlafaxine, zolpidem
--- NOTE | 2017-03-06 22:08 | ULTRASOUND REPORT ---
EXAMINATION: US TRIPLEX LOWER EXTREMITY, RIGHT CLINICAL INFORMATION: Right lower extremity swelling. COMPARISON: None TECHNIQUE: Color-flow triplex imaging with spectral analysis and compression Doppler were performed on the lower extremity. FINDINGS: There is normal compression, and augmentation seen in the right common femoral, greater saphenous, social femoral, popliteal tibioperoneal trunks, posterior tibial veins. There is normal flow also visualized in common femoral vein. There is no right Mary's cyst. IMPRESSION: Normal right lower leg venous study. No evidence of DVT.
[2017-03-06 23:03] VITALS: BP 110/64
--- NOTE | 2017-03-07 04:21 | Admission Certification ---
Admission Certification Certification Statement - As attending physician, I certify that at the time of - admission, based on clinical presentation, severity of - symptoms, need for further diagnostic testing and - therapeutic interventions, and risk of adverse outcomes - without in-hospital treatment, in my clinical assessment, - this patient requires an acute hospital stay for a minimum - of two nights or longer. I have also considered psychsocial - factors such as support system, advanced age, financial - issues, cognitive issues, and failed out-patient treatments, - past re-admission history, safety of patient, and lack of - compliance as applicable. Specific rationale supporting this admission is: Right lower extremity cellulitis with history of recurrent osteomyelitis and insulin-dependent diabetes and peripheral arterial disease
[2017-03-07 07:23] VITALS: BP 114/62
--- NOTE | 2017-03-07 07:36 | PN- Housestaff ---
BELEN MCGINNIS,FLOR 03/07/17 0735: Subjective Follow-up For: Right lower extremity wound, redness, pain. Subjective: Patient followed up and examined by me today. She is resting comfortably in bed , is not in distress, vitals have been stable, no overnight issues. Review of Systems Constitutional: Reports: no symptoms. Objective Last 24 Hrs of Vital Signs/I&O Vital Signs Date Time Temp Pulse Resp B/P B/P Pulse O2 O2 Flow FiO2 Mean Ox Delivery Rate 03/07 1902 99.7 03/07 1804 99.7 93 16 124/74 92 Room Air 03/07 1544 100.0 03/07 1535 100.0 84 20 150/80 98 Room Air 03/07 1030 70 112/64 03/07 0723 97.8 84 20 114/62 94 03/06 2303 98.1 88 20 110/64 98 Room Air 03/06 2219 97.3 90 16 118/61 96 03/06 2128 98.9 96 20 128/69 96 Intake & Output 03/07 1600 03/07 0800 03/07 0000 Intake Total 1100 725 100 Output Total Balance 1100 725 100 Intake, IV 600 725 100 Intake, Oral 500 Number 0 Bowel Movements Patient 111.584 kg Weight Weight Reported by Patient Measurement Method Physical Exam General Appearance: Alert, Oriented X3, Cooperative, No Acute Distress Other Physical Findings: Skin has chronic skin changes in her RLE. Erythematous. Some scabbed over lesions in RLE. HEENT Atraumatic, PERRLA, EOMI, Mucous Membr. moist/pink Neck Supple Cardiovascular Regular Rate, Normal S1, Normal S2, No Murmurs Lungs Clear to Auscultation Abdomen Soft, No Tenderness Extremities LLE with prosthesis RLE with erythema upto knee with recent wound with the scabs over anterior aspect of right rojas. Right sole has a lesion with surrounding slightly fluctuant area, but does not express any pus or discharge pressure, no surrounding erythema though. Current Medications: Current Medications Sig/Jesse Start time Last Medication Dose Route Stop Time Status Admin Acetaminophen 650 MG Q6 PRN 03/06 2130 AC PO Acetaminophen 0 .STK-MED ONE 03/06 2052 DC IV Acetaminophen 1,000 MG ONCE ONE 03/06 2000 DC 03/06 IV 03/06 Alprazolam 0 .STK-MED ONE 05/30 2220 DC PO Alprazolam 2 MG TID 03/06 2200 AC 03/06 PO 03/13 2159 2220 Ampicillin Sodium/ 1,500 MG Q12 03/07 1000 AC Sulbactam Sodium IV Sodium Chloride 100 ML Ampicillin Sodium/ 0 .STK-MED ONE 03/06 1806 DC Sulbactam Sodium .ROUTE Ampicillin Sodium/ 3,000 MG ONCE ONE 03/06 1700 DC 03/06 Sulbactam Sodium IV 03/06 1729 1808 Sodium Chloride 100 ML Aripiprazole 10 MG DAILY 03/07 1000 AC PO Atorvastatin Calcium 80 MG 1700 03/07 1700 AC PO Clopidogrel Bisulfate 75 MG DAILY 03/07 1000 AC PO Heparin Sodium 0 .STK-MED ONE 03/06 2220 DC (Porcine) .ROUTE Heparin Sodium 5,000 UNIT Q8 03/06 2200 AC 03/07 (Porcine) SC 0515 Insulin Aspart 0 TIDAC 03/07 0800 AC SC Insulin Detemir 30 UNITS BID 03/06 2200 AC SC Levothyroxine Sodium 0.2 MG DAILY AC 03/07 0700 AC 03/07 PO 0516 Metoprolol Tartrate 50 MG DAILY 03/07 1000 AC PO Mirtazapine 15 MG QPM 03/06 2200 AC 03/06 PO 2239 Morphine Sulfate 0.5 MG Q6 PRN 03/06 2130 AC 03/07 IV 0303 Oxycodone HCl 10 MG Q6 03/06 2359 AC 03/07 PO 0516 Sodium Chloride 1,000 ML Q10H 03/06 2345 AC 03/07 IV 03/07 1944 0041 Sodium Chloride 1,000 ML BOLUS ONE 03/06 2000 DC IV 03/06 205 Sodium Chloride 1,000 ML BOLUS ONE 03/06 2000 DC IV 03/06 205 Sodium Chloride 500 ML BOLUS ONE 03/06 1700 DC 03/06 IV 03/06 1759 1917 Venlafaxine HCl 150 MG 0800 03/07 0800 AC PO Zolpidem Tartrate 0 .STK-MED ONE 03/06 2221 DC PO Zolpidem Tartrate 10 MG QPM 03/06 2200 AC 03/06 PO 2217 Last 24 Hrs of Lab/Marcello Results Last 24 Hrs of Labs/Mics: Laboratory Tests 03/07/17 0630: Sodium Pending, Potassium Pending, Chloride Pending, Carbon Dioxide Pending, Anion Gap Pending, BUN Pending, Creatinine Pending, BUN/Creatinine Ratio Pending , CBC w Diff Pending, WBC Pending, RBC Pending, Hgb Pending, Hct Pending, MCV Pending, MCH Pending, RDW Pending, Plt Count Pending, MPV Pending, PUBS MCHC Pending 03/06/171953: Lactic Acid Cancelled 03/06/171653: Lactic Acid Cancelled 03/06/17 1630: Anion Gap 10, Estimated GFR 26 L, BUN/Creatinine Ratio 18.0, Glucose 59 L, Lactic Acid 1.7, Calcium 7.8 L, Total Bilirubin 0.4, AST 31, ALT 59 H, Alkaline Phosphatase 159 H, Creatine Kinase 36, Total Protein 6.0 L, Albumin 3.1 L, Globulin 2.9, Albumin/Globulin Ratio 1.1, CBC w Diff MAN DIFF ORDERED, RBC 4.17 L, MCV 82.3, MCH 27.0, RDW 14.5, MPV 8.6, Gran % 87.0 H, Lymphocytes % 6.9 L, Monocytes % 4.7, Eosinophils % 0.6, Basophils % 0.8, Absolute Granulocytes 22.8 H, Absolute Lymphocytes 1.8, Absolute Monocytes 1.2 H, Absolute Eosinophils 0.2, Absolute Basophils 0.2, Platelet Estimate ADEQUATE, Normocytic RBCs VERIFIED, Normochromic RBCs VERIFIED, PUBS MCHC 32.8 L Microbiology 03/06 1800 BLOOD: Blood Culture - RECD 03/06 1654 BLOOD: Blood Culture - CAN Cancelled: Cancelled via OE: Per MD Decision 03/06 1630 BLOOD: Blood Culture - RECD Assessment/Plan Assessment: This is a 56-year-old female past medical history significant for IDDM, PVD, CAD status post UT and stent, bipolar, right lower extremity osteoporosis status post amputation of all extremity digits, CK 80, BKA and left lower extremity, thyroid cancer status post thyroidectomy, who was referred to the emergency department by wound care center for redness, swelling, pain and wound over right leg and wound at the base of right sole. Patient is currently being managed in the general medical floor for the following issues: #Right lower extremity cellulitis over rojas: Patient currently being managed with IV antibiotics, will continue that, pending culture report. Wound care consultation appreciated. Following recommendations. #Right lower extremity possible osteomyelitis/abscess over the sole: Patient's clinical presentation makes abscess or osteomyelitis very likely on the sole of right foot. Podiatry service has been consulted, who agrees to the plan and the patient is to undergo incision and drainages tomorrow morning and does will be placed nothing by mouth after midnight today. Of note, MRI was negative for osteomyelitis. Podiatry consultation appreciated. #Continuing rest of the home medications for now. Pain medication was optimized with increased amount of morphine for breakthrough pain and continuing home dose of oxycodone. Full code Chemical DVT prophylaxis Heart healthy diet Problem List: 1. Open wound of leg 2. Abscess 3. Cellulitis Pain Ratin Pain Location: right lower extremity, nando over rojas Pain Goal: Pain 4 or less Pain Plan: prn, morphine increased today. Tomorrow's Labs & Rationales: CBC to follow WBC count DARRIAN MCGINNIS,PATRICIO 03/07/17 1405: Attending MD Review Statement Attending Statement Attending MD Statement: examined this patient, discuss w/resident/PA/MEDICAL CLAIMS PROCESSOR, agreed w/resident/PA/MEDICAL CLAIMS PROCESSOR, reviewed EMR data (avail), discussed with nursing, discussed with case mgmt, amended to note Attending Assessment/Plan: Patient seen and examined. Lying in bed. Complains of right lower extremity pain. Reports suboptimal pain control with current dose of morphine. She is afebrile and hemodynamically stable. On examination she has healing wounds on the anterior aspect of the right rojas. On the plantar aspect of the right foot elevated fluctuant area. Nontender to touch. Small open area with minimal drainage. Right lower extremity pulse easily palpable probably due to body habitus. Problems: 1. Right lower extremity cellulitis with possible underlying abscess. 2. Rule out osteomyelitis. 3. Insulin-dependent diabetes mellitus 4. Chronic pain syndrome 5. Coronary artery disease. Plan: -Patient shows no evidence of sepsis at present however she appears have underlying abscess collection. Podiatry service has been contacted for incision and drainage. -Keep patient nothing by mouth for possible or today. -Obtain MRI of the lower extremity to low rule out underlying osteomyelitis. -Continue her home insulin regimen because functional blood glucose levels. -Optimize pain control. Continue home dose of Roxicodone. Increase morphine to 1 mg every 6 hours when necessary breakthrough pain.
[2017-03-07 08:05] LABS: ABSOLUTE GRANULOCYTE CT 14.7 /CUMM (1.4-6.5); RBC DISTRIBUTION WIDTH 14.9 % (11.5-14.5)
[2017-03-07 08:32] LABS: ABSOLUTE BASOPHIL COUNT 0.1 /CUMM (0.0-0.2); ABSOLUTE EOSINOPHIL COUNT 0.3 /CUMM (0.0-0.7); ABSOLUTE LYMPH COUNT 1.5 /CUMM (1.2-3.4); ABSOLUTE MONOCYTE COUNT 1.3 /CUMM (0.10-0.60); BASOPHIL % 0.3 % (0.0-2.0); EOSINOPHIL % 1.6 % (0-5); GRANULOCYTE % 82.4 % (42.2-75.2); MEAN CORPUSCULAR HGB 27.5 PG (27.0-31.0); MEAN CORPUSCULAR HGB CONC 33.8 G/DL (33.0-37.0); MEAN CORPUSCULAR VOLUME 81.2 FL (81.0-99.0); MEAN PLATELET VOLUME 8.7 FL (7.4-10.4); PLATELET COUNT 177 /CUMM (130-400); RED BLOOD CELL CT 3.35 /CUMM (4.20-5.40); WHITE BLOOD CELL COUNT 17.8 /CUMM (4.8-10.8)
[2017-03-07 08:38] LABS: HEMATOCRIT 27.2 % (37-47)
--- NOTE | 2017-03-07 11:04 | PN- Wound Care ---
Subjective Subjective: 56-year-old woman multiple medical problems including diabetes peripheral vascular disease status post post left BKA right TMA admitted for right leg cellulitis. She was previously seen in the wound care center for a right lower extremity wounds, complicated by edema and peripheral vascular disease is status post vascular surgery intervention. Yesterday she was found to be febrile with a erythematous right leg and admitted for acute cellulitis. Objective Vital Signs and I&Os Vital Signs Result Date Time B/P 112/64 03/07 1030 Pulse 70 03/07 1030 Pulse Ox 94 03/07 0723 Temp 97.8 03/07 0723 Resp 20 03/07 0723 O2 Delivery Room Air 03/06 2303 Intake & Output 03/07 0000 03/06 1600 03/06 0800 Intake Total 100 Output Total Balance 100 Intake, IV 100 Patient 246 lb 246 lb Weight Weight Reported by Patient Reported by Patient Measurement Method With the right leg shows these prior ulcers to have healed to dry scabs there is no drainage there is marked swelling and erythema over the plantar aspect of her right foot is in an area of callus there appears to be fluctuance and there is approximately 1 x 1 cm area of probable deep tissue injury distal pulses are difficult to palpate Impression/Plan Impression/Plan Impression/Plan: 56-year-old with chronic kidney disease diabetes peripheral vascular disease status post left BKA right TMA admitted with acute bacterial cellulitis of her right leg there may well be a right foot collection and podiatry has been called for evaluation for incision and drainage. Recommend leg elevation and wound care with Xeroform and gauze over dry scabs on the right leg. Further imaging of the right foot following podiatry evaluation
[2017-03-07 15:35] VITALS: BP 150/80
--- NOTE | 2017-03-07 15:52 | MRI REPORT ---
EXAMINATION: MR FOOT WITHOUT CONTRAST, RIGHT CLINICAL INFORMATION: Rule out abscess at the plantar aspect of the right foot. Rule out osteomyelitis. COMPARISON: 03/06/2017 TECHNIQUE: Multiplanar MR imaging was obtained through the right foot without contrast material on a 1.5 Alesia magnet. FINDINGS: Again seen are changes of prior transmetatarsal amputations at the level of the 1st metatarsal base and 5th metatarsal neck. The 2nd, 3rd, and 4th toes are absent, disarticulated at the level of the MTP joints. There is multifocal degenerative arthritis in the midfoot with articular cartilage loss, marginal osteophytes, and subarticular marrow edema, most notably at the tarsometatarsal joints and calcaneocuboid joints. No superimposed osteomyelitis is suspected in these regions. There is marked diffuse soft tissue edema and soft tissue swelling in the foot. At the plantar aspect of the midfoot at the level of the 1st metatarsal base, there is a heterogeneous 1.4 x 1 x 1.4 cm collection in the subcutaneous fat superficial to the plantar fascia. This most likely corresponds to an abscess and is likely contiguous with the underlying skin ulceration. Additional components to this abscess may be present at its medial and deep margins. Sensitivity is limited by the absence of intravenous contrast material. No additional abscesses are suspected. There is diffuse fatty atrophy of the foot musculature. Edema signal within the flexor digitorum brevis and abductor hallucis muscles is reactive to the adjacent abscess. No appreciable tenosynovitis. IMPRESSION: 1. A 1.4 cm collection in the subcutaneous fat in the plantar soft tissues of the midfoot underlying the ulceration, most compatible with an abscess. Assessment of the extent of the abscess is somewhat limited without intravenous contrast material. 2. Degenerative arthritis in the midfoot. No appreciable findings of superimposed osteomyelitis.
--- NOTE | 2017-03-07 17:30 | Cons- Podiatry ---
General Information and HPI Consulting Request Date of Consult: 03/07/17 Requested By: KENDALL BLANK MD History of Present Illness: Sobeida is a 56-year-old insulin-dependent diabetic who presented to the wound center complaining of pain and swelling and redness to her right lower extremity. The patient was evaluated by Dr. wen and referred to the ED for admission. The patient has a significant past medical history and is status post left BKA and right midfoot amputation for recalcitrant osteomyelitis. The patient admitted to fever and chills prior to her admission. Allergies/Medications Allergies: Coded Allergies: NSAIDS (Non-Steroidal Anti-Inflamma (TONGUE SWELLING 01/20/16) ibuprofen (TONGUE SWELLING 01/20/16) codeine ("HEART FEELS FUNNY" 03/12/16) ketorolac (From TORADOL) (NAUSEA 03/12/16) lithium (HALLUCINATIONS 03/12/16) tramadol (vomit 03/12/16) Home Med List: Alprazolam 2 MG TABLET 1 TAB PO TID ANXIETY (Reported) Aripiprazole (Abilify) 10 MG TABLET 1 TAB PO DAILY SCHIZOPHRENIA (Reported) Atorvastatin Calcium (Lipitor) 80 MG TABLET 1 TAB PO DAILY CHOLESTEROL ( Reported) Calcium Carbonate/Vitamin D3 (Calcium 600 + Vit D 400 Tablet) 1 EACH TABLET 1 TAB PO TID CALCIUM SUPPLEMENT Carvedilol 6.25 MG TABLET 1 TAB PO BID HEART (Reported) Clopidogrel Bisulfate (Clopidogrel) 75 MG TABLET 1 TAB PO DAILY BLOOD THINNER (Reported) Furosemide (Lasix) 40 MG TABLET 40 MG PO BID FLUID RETENTION Insulin Detemir (Levemir) 100 UNIT/1 ML VIAL 30 UNITS SC BID BLOOD SUGARS Insulin Lispro (Humalog) 100 UNIT/ML VIAL DM (Reported) Levothyroxine Sodium 200 MCG TABLET 1 TAB PO DAILY THYROID (Reported) Lisinopril 5 MG TABLET 5 MG PO DAILY KIDNEY HEALTH Metoprolol Tartrate 50 MG TABLET 1 TAB PO DAILY HEART/BP (Reported) Mirtazapine 15 MG TABLET 1 TAB PO QPM MENTAL HEALTH (Reported) Oxycodone HCl 10 MG TABLET 1 TAB PO 4XDAILY PAIN (Reported) Venlafaxine HCl (Venlafaxine HCl ER) 150 MG CAP.ER.24H 2 CAP PO DAILY MENTAL HEALTH (Reported) Zolpidem Tartrate 10 MG TABLET 1 TAB PO QPM SLEEP (Reported) Past History Medical History Blood Transfusion Hx: Yes Neurological: NONE EENT: tonsil infections Cardiovascular: CAD (s/p stent), myocardial infarction (w/ stent), DVT Respiratory: NONE, Gastrointestinal: NONE Hepatic: hepatitis C Renal: chronic kidney disease, patient has nephrotic range proteinuria which may be due to diabetes or Musculoskeletal: fracture, osteoarthritis, BULGING DISK L4/L5 OSTEOMYELITIS Psychiatric: anxiety, depression Endocrine: diabetes (type 1, insulin-dep), hypothyroidism Blood Disorders: HEP C Cancer(s): thyroid cancer WIRE SAWYER/Reproductive: NONE Other Medical Hx: Polysubstance abuse (heroin, cocaine) Surgical History Pertinent Surgical History: , knee replacement (left), laminectomy, LEFT bka (2013) s/p right TMA s/p thyroidectomy s/p right carpal tunnel surgery s/p bone spur removal left wrist and left heel PTCA WITH STENT Family History Relations & Conditions If Any: Relation not specified for: *No pertinent family history Psychosocial History Where Do You Live? Home Who Do You Live With? roommate Services at Home: Nursing Primary Language: Mongolian Smoking Status: Former Smoker ETOH Use: occasional use Illicit Drug Use: denies illicit drug use Functional Ability ADLs Independent: dressing, eating, toileting, bathing. Ambulation: independent IADLs Independent: shopping, housework, finances, food prep, telephone, transportation , medication admin. Review of Systems Review of Systems: Unremarkable except for that noted in history of present illness Exam & Diagnostic Data Vital Signs and I&O Vital Signs Date Time Temp Pulse Resp B/P B/P Pulse O2 O2 Flow FiO2 Mean Ox Delivery Rate 03/07 1544 100.0 03/07 1535 100.0 84 20 150/80 98 Room Air 03/07 1030 70 112/64 03/07 0723 97.8 84 20 114/62 94 03/06 2303 98.1 88 20 110/64 98 Room Air 03/06 2219 97.3 90 16 118/61 96 03/06 2128 98.9 96 20 128/69 96 03/06 1834 99.6 104 18 121/58 99 Room Air Intake & Output 03/07 1600 03/07 0800 03/07 0000 03/06 1600 03/06 0800 03/06 0000 Intake Total 1100 725 100 Output Total Balance 1100 725 100 Intake, IV 600 725 100 Intake, Oral 500 Number 0 Bowel Movements Patient 246 lb 246 lb Weight Weight Reported by Patient Reported by Patient Measurement Method Physical Exam: Significant edema and erythema noted to the right lower extremity with a plantar ulcer noted to the stump of the plantar right foot. There is some fluctuance identified with palpation plantarly. MRI demonstrates a plantar space abscess with no findings suggestive of osteomyelitis. Assessment/Plan Assessment/Plan Plantar space abscess and right lower extremity cellulitis. The patient to the OR tomorrow for open incision and drainage of plantar space abscess. Nothing by mouth past midnight tonight. Consult Acknowledgment - Thank you for your consult request. Attending MD Review Statement Attending Statement Attending MD Statement: examined this patient
[2017-03-07 18:04] VITALS: BP 124/74
[2017-03-07 23:29] VITALS: BP 144/72
[2017-03-08 07:00] VITALS: BP 122/72
--- NOTE | 2017-03-08 07:02 | PN- Housestaff ---
BELEN MCGINNIS,FLOR 03/08/17 0702: Subjective Follow-up For: Right lower extremity wound, redness, pain. Subjective: Patient followed up and examined by me today. She is resting comfortably in bed , is not in distress, vitals have been stable, no overnight issues. Patient is awaiting incision and drainage of right sole today. Review of Systems Constitutional: Reports: no symptoms. Objective Last 24 Hrs of Vital Signs/I&O Vital Signs Date Time Temp Pulse Resp B/P B/P Pulse O2 O2 Flow FiO2 Mean Ox Delivery Rate 03/08 1422 98.0 78 18 121/67 94 Room Air 03/08 0926 96 128/74 03/08 0700 98.5 112 22 122/72 92 Room Air 03/08 0215 99.0 03/07 2329 100.0 93 20 144/72 94 Room Air 03/07 1902 99.7 03/07 1804 99.7 93 16 124/74 92 Room Air Intake & Output 03/08 1600 03/08 0800 03/08 0000 Intake Total 180 510 450 Output Total Balance 180 510 450 Intake, IV 180 450 Intake, Oral 0 60 450 Patient 111.584 kg Weight Physical Exam General Appearance: Alert, Oriented X3, Cooperative, No Acute Distress, obese Other Physical Findings: Skin has chronic skin changes in her RLE. Erythematous. Some scabbed over lesions in RLE. HEENT Atraumatic, PERRLA, EOMI, Mucous Membr. moist/pink Neck Supple Cardiovascular Regular Rate, Normal S1, Normal S2, No Murmurs Lungs Clear to Auscultation Abdomen Soft, No Tenderness Extremities LLE with prosthesis RLE with erythema upto knee with recent wound with the scabs over anterior aspect of right rojas. Right sole has a lesion with surrounding slightly fluctuant area, but does not express any pus or discharge pressure, no surrounding erythema though. Current Medications: Current Medications Sig/Jesse Start time Last Medication Dose Route Stop Time Status Admin Acetaminophen 650 MG Q6 PRN 03/06 2130 AC 03/07 PO 1544 Alprazolam 2 MG TID 03/06 2200 AC 03/08 PO 03/13 2159 1641 Ampicillin Sodium/ 1,500 MG Q12 03/07 1000 AC 03/08 Sulbactam Sodium IV 0924 Sodium Chloride 100 ML Aripiprazole 10 MG DAILY 03/07 1000 AC 03/08 PO 0926 Atorvastatin Calcium 80 MG 1700 03/07 1700 AC 03/08 PO 1641 Clopidogrel Bisulfate 75 MG DAILY 03/07 1000 AC 03/07 PO 1029 Dextrose/Sodium 1,000 ML Q20H 03/08 0830 AC 03/08 Chloride IV 03/09 0109 0826 Heparin Sodium 5,000 UNIT Q8 03/06 2200 AC 03/07 (Porcine) SC 2118 Insulin Aspart 0 TIDAC 03/08 1700 AC SC Insulin Aspart 0 TIDAC 03/07 0800 DC 03/07 SC 1649 Insulin Detemir 30 UNITS BID 03/06 2200 AC 03/08 SC 0929 Insulin Human Regular 0 Q6 03/08 0759 DC SC Levothyroxine Sodium 0.2 MG DAILY AC 03/07 0700 AC 03/08 PO 0517 Metoprolol Tartrate 50 MG DAILY 03/07 1000 AC 03/08 PO 0926 Mirtazapine 15 MG QPM 03/06 2200 AC 03/07 PO 2119 Morphine Sulfate 2 MG Q3P PRN 03/07 1637 AC 03/08 IV 0826 Oxycodone HCl 10 MG Q6 03/06 2359 AC 03/08 PO 0517 Patient Medication 1 ED .STK-MED ONE 03/08 1248 DC Teaching ED 03/08 1249 Sodium Chloride 1,000 ML Q13H 03/08 0800 DC IV 03/09 0959 Sodium Chloride 1,000 ML Q10H 03/06 2345 DC 03/07 IV 03/07 1944 1032 Venlafaxine HCl 150 MG 0800 03/07 0800 AC 03/08 PO 0926 Zolpidem Tartrate 10 MG QPM 03/06 2200 AC 03/07 PO 2119 Last 24 Hrs of Lab/Marcello Results Last 24 Hrs of Labs/Mics: Laboratory Tests 03/08/17 0656: CBC w Diff NO MAN DIFF REQ, RBC 3.07 L, MCV 80.7 L, MCH 27.0, RDW 14.9 H, MPV 8.8, Gran % 83.5 H, Lymphocytes % 8.0 L, Monocytes % 6.8, Eosinophils % 1.6, Basophils % 0.1, Absolute Granulocytes 12.7 H, Absolute Lymphocytes 1.2, Absolute Monocytes 1.0 H, Absolute Eosinophils 0.2, Absolute Basophils 0, PUBS MCHC 33.5 Assessment/Plan Assessment: This is a 56-year-old female past medical history significant for IDDM, PVD, CAD status post MD and stent, bipolar, right lower extremity osteoporosis status post amputation of all extremity digits, CK 80, BKA and left lower extremity, thyroid cancer status post thyroidectomy, who was referred to the emergency department by wound care center for redness, swelling, pain and wound over right leg and wound at the base of right sole. Patient is currently being managed in the general medical floor for the following issues: #Right lower extremity cellulitis over rojas: Patient currently being managed with IV antibiotics, will continue that, pending culture report. Wound care consultation appreciated. Following recommendations. #Right lower extremity abscess over the sole: Patient is undergoing incision and drainage of the abscess with podiatry service today. Podiatry consultation appreciated. Ruling out osteomyelitis as well. #Continuing rest of the home medications for now. Pain medication was optimized with increased amount of morphine for breakthrough pain and continuing home dose of oxycodone. Full code Chemical DVT prophylaxis Heart healthy diet Problem List: 1. Open wound of leg 2. Abscess 3. Cellulitis 4. Anemia Pain Ratin Pain Location: RLE Pain Goal: Pain 4 or less Pain Plan: prn Tomorrow's Labs & Rationales: CBC ro follow H/H (dropping), BEP for Cr PATRICIO COLMENARES MD 03/08/17 1012: Attending MD Review Statement Attending Statement Attending MD Statement: examined this patient, discuss w/resident/PA/CORPORATION LAWYER, agreed w/resident/PA/CORPORATION LAWYER, reviewed EMR data (avail), discussed with nursing, discussed with case mgmt, amended to note Attending Assessment/Plan: Patient seen and examined. Resting comfortably. She does not appear to be in acute distress. She does report better pain control with increased dose of morphine yesterday although she admits to high pain scores on occasion. On examination she has intact dressing over the right plantar area. Extremity is warm to touch. There is no clinical evidence of limb ischemia. Problems: 1. Right lower extremity cellulitis with possible underlying abscess. 2. Rule out osteomyelitis. 3. Insulin-dependent diabetes mellitus 4. Chronic pain syndrome 5. Coronary artery disease. 6. MORAIMA on Chronic Kidney Disease. Plan: -Patient was mildly hypoglycemic this morning with blood glucose levels in the 70s. Begin patient on D5 half normal saline with nothing by mouth sliding scale coverage. -She is scheduled to undergo debridement in the operating room later on today. Continue antibiotic coverage. -Follow-up culture reports postoperatively and adjust antibiotic coverage as needed. -Her morphine dose was increased yesterday. She reports better pain control though she still admits to high pain scores on occasion. We'll continue to monitor and adjust medications as needed. -Repeat serum chemistry tomorrow. WBC appears to be trending downwards. Follow -up CBCs today. -Her anemia is likely secondary to her chronic kidney disease.
--- NOTE | 2017-03-08 07:53 | Patient Discharge Instructions ---
Discharge Instructions General Discharge Information You were seen/treated for: Cellulitis You had these procedures: Incision and drainage Special Instructions: Please follow up with Dr. Nava (class a regional drivers), Dr. Wells (wound care) and your primary care provider within 1 week of discharge. Check BEP again in 3-4 days to monitor renal function. Until then nephrotoxins ( Lasix and Lisinopril to be held). Diet Continue normal diet: No Recommended Diet: Diabetic Activity Full Activity/No Limits: No Acute Coronary Syndrome Inclusion Criteria At DC or during hospital stay patient has or had the following: ACS DIAGNOSIS No Discharge Core Measures Meds if any: Prescribed or Continued at Discharge Meds if any: NOT Prescribed or Continued at Discharge Congestive Heart Failure Inclusion Criteria At DC or during hospital stay patient has or had the following: CHF DIAGNOSIS No Discharge Core Measures Meds if any: Prescribed or Continued at Discharge Meds if any: NOT Prescribed or Continued at Discharge Cerebrovascular accident Inclusion Criteria At DC or during hospital stay patient has or had the following: CVA/TIA Diagnosis No Discharge Core Measures Meds if any: Prescribed or Continued at Discharge Meds if any: NOT Prescribed or Continued at Discharge Venous thromboembolism Inclusion Criteria VTE Diagnosis No VTE Type NONE VTE Confirmed by (Test) NONE Discharge Core Measures - Per Current guidelines, there needs to be overlap - treatment for the first 5 days of Warfarin therapy. - If discharged on Warfarin prior to 5 days of - overlap therapy, the patient will need to be - assessed for post discharge needs including - *Post discharge parental anticoagulation - *Warfarin and/or parental anticoagulation education - *Follow up date to check INR post discharge At least 5 days overlap therapy as Inpatient No Meds if any: Prescribed or Continued at Discharge Note: Overlap Therapy is Warfarin and Anticoagulant Meds if any: NOT Prescribed or Continued at Discharge
[2017-03-08 08:06] LABS: ABSOLUTE BASOPHIL COUNT 0 /CUMM (0.0-0.2); ABSOLUTE EOSINOPHIL COUNT 0.2 /CUMM (0.0-0.7); ABSOLUTE GRANULOCYTE CT 12.7 /CUMM (1.4-6.5); ABSOLUTE LYMPH COUNT 1.2 /CUMM (1.2-3.4); BASOPHIL % 0.1 % (0.0-2.0); EOSINOPHIL % 1.6 % (0-5); HEMATOCRIT 24.8 % (37-47); MEAN CORPUSCULAR HGB CONC 33.5 G/DL (33.0-37.0); MEAN CORPUSCULAR VOLUME 80.7 FL (81.0-99.0); MEAN PLATELET VOLUME 8.8 FL (7.4-10.4); PLATELET COUNT 185 /CUMM (130-400); RBC DISTRIBUTION WIDTH 14.9 % (11.5-14.5); RED BLOOD CELL CT 3.07 /CUMM (4.20-5.40); WHITE BLOOD CELL COUNT 15.2 /CUMM (4.8-10.8)
--- NOTE | 2017-03-08 08:22 | PN- Wound Care ---
Subjective Subjective: Patient scheduled for operative drainage of right foot abscess today right lower extremity erythema appears somewhat improved. Note her sedimentation rate is 100 Objective Vital Signs and I&Os Vital Signs Result Date Time Pulse Ox 92 03/08 700 B/P 122/72 03/08 700 O2 Delivery Room Air 03/08 700 Temp 98.5 03/08 07 Pulse 112 03/08 0700 Resp 22 03/08 0700 Intake & Output 03/08 0000 03/07 1600 03/07 0800 Intake Total 450 1100 725 Output Total Balance 450 1100 725 Intake, IV 600 725 Intake, Oral 450 500 Number 0 Bowel Movements Right lower extremity ulcers have softening slough erythema is diminished right foot fluctuance remains Impression/Plan Impression/Plan Impression/Plan: 56-year-old with chronic kidney disease diabetes peripheral vascular disease status post left BKA right TMA admitted with acute bacterial cellulitis of her right leg there may well be a right foot collection and podiatry has been called for evaluation for incision and drainage. Recommend leg elevation and wound care with Xeroform and gauze over dry scabs on the right leg. Further imaging of the right foot following podiatry evaluation. Continue antibiotics pending operative cultures leg elevation and Xeroform
[2017-03-08 12:11] LABS: GRANULOCYTE % 83.5 % (42.2-75.2)
[2017-03-08 14:22] VITALS: BP 121/67
--- NOTE | 2017-03-08 17:05 | Operative Report ---
Operative/Inv Procedure Report Surgery Date: 03/08/17 Name of Procedure: 1 open incision and drainage deep to the deep fascia with exposure of the flexor tendons and tendon sheath multiple sites right foot 2 intraoperative administration of ankle block anesthesia 3 excisional debridement Pre-Operative Diagnosis: 1 plantar space abscess right foot 2 diabetic peripheral neuropathy Post-Operative Diagnosis: Same Estimated Blood Loss: less than 50ml Surgeon/Mortgage Servicing Specialist: LIZET DOLAN DPM Anesthesia: moderate sedation, block Operative/Procedure Note Note: After obtaining informed consent the patient was brought to the operating room and placed on the operating table in the supine position. The patient was then securely fastened to the operating table utilizing safety belt. After administration of IV sedation, 10 mL of 0.5% Marcaine plain was infiltrated about the patient's right ankle. The right foot and ankle within scrubbed prepped and draped in usual aseptic manner. Attention was directed to the plantar aspect of the right foot, where a probing and full-thickness necrotic was identified. A 15 blade visualized sharply revised skin margins. A Maria De Jesus hemostat was then noted to probe transversely across the foot and the tissues were incised over this area. Approximately 10 mL of purulence was expressed from the open wound. The dissection was then carried down deep to the deep fascia with exposure of the flexor tendon and tendon sheath multiple sites, both proximally and distally. All necrotic nonviable and infected tissue sharply evacuated from the wound bed. The open wound was then irrigated with 3 L of normal sterile saline infused with 50,000 units of bacitracin. Following this, the foot was redraped and the surgeon's top gloves were changed clean gloves. Any bleeding vessels identified were cauterized or ligated as encountered. The open wound was then packed with iodoform and 3-0 nylon retention sutures were placed. The foot was dressed with 4 x 4's Kerlix and an Chang wrap. The patient was noted to tolerate both procedure and anesthesia well and the patient was transported from the operating room to recovery with vital signs stable.
[2017-03-08 21:56] VITALS: BP 154/88
--- NOTE | 2017-03-09 04:07 | Event Note ---
Event Note Event Note: Patient's blood sugar was 80 before dinner, 77 at bedtime. Will give 15 units of levemir instead of 30 units.
[2017-03-09 07:15] VITALS: BP 126/84
--- NOTE | 2017-03-09 07:25 | PN- Housestaff ---
BELEN MCGINNIS,FLOR 03/09/17 0724: Subjective Follow-up For: Right lower extremity wound, redness, pain. Subjective: I followed up and examined the patient today. She is resting comfortably in bed , does not appear to be in distress, and since that her pain management is not adequate, vitals have been stable. Nursing staff reported this morning that she was more drowsy than usual. Right foot is well dressed after the I&D procedure yesterday. Elevated. Review of Systems Constitutional: Reports: see HPI. Objective Last 24 Hrs of Vital Signs/I&O Vital Signs Date Time Temp Pulse Resp B/P B/P Pulse O2 O2 Flow FiO2 Mean Ox Delivery Rate 03/09 1434 98.9 78 20 138/80 94 Room Air 03/09 0829 97 110/70 03/09 0715 98.3 95 20 126/84 92 Room Air 03/08 2156 97.8 95 20 154/88 94 Room Air Intake & Output 03/09 1600 03/09 0800 03/09 0000 Intake Total 770 980 Output Total 300 Balance 770 680 Intake, IV 450 480 Intake, Oral 320 500 Output, Urine 300 Physical Exam General Appearance: Alert, Oriented X3, Cooperative, No Acute Distress Other Physical Findings: Skin has chronic skin changes in her RLE. Erythematous. Some scabbed over lesions in RLE. HEENT Atraumatic, PERRLA, EOMI, Mucous Membr. moist/pink Neck Supple Cardiovascular Regular Rate, Normal S1, Normal S2, No Murmurs Lungs Clear to Auscultation Abdomen Soft, No Tenderness Extremities LLE with prosthesis; RLE well dressed, no leakage. Current Medications: Current Medications Sig/Jesse Start time Last Medication Dose Route Stop Time Status Admin Acetaminophen 650 MG Q6 PRN 03/06 2130 AC 03/07 PO 1544 Alprazolam 2 MG TID 03/06 2200 AC 03/09 PO 03/13 2159 1608 Ampicillin Sodium/ 1,500 MG Q12 03/07 1000 AC 03/09 Sulbactam Sodium IV 1054 Sodium Chloride 100 ML Aripiprazole 10 MG DAILY 03/07 1000 AC 03/09 PO 0830 Atorvastatin Calcium 80 MG 1700 03/07 1700 AC 03/09 PO 1608 Clopidogrel Bisulfate 75 MG DAILY 03/07 1000 AC 03/09 PO 0829 Dextrose/Sodium 1,000 ML Q20H 03/08 0830 DC 03/08 Chloride IV 03/09 0109 0826 Docusate Sodium 100 MG BID 03/09 1000 AC 03/09 PO 1158 Heparin Sodium 5,000 UNIT Q8 03/06 2200 AC 03/09 (Porcine) SC 1609 Insulin Aspart 0 TIDAC 03/08 1700 AC 03/09 SC 1158 Insulin Detemir 15 UNITS ONCE ONE 03/08 2115 DC 03/08 SC 03/08 Insulin Detemir 30 UNITS BID 03/06 220 AC 03/09 SC 0831 Levothyroxine Sodium 0.2 MG DAILY AC 03/07 0700 AC 03/09 PO 0541 Metoprolol Tartrate 50 MG DAILY 03/07 1000 AC 03/09 PO 0829 Mirtazapine 15 MG QPM 03/06 2200 AC 03/08 PO 2119 Morphine Sulfate 2 MG Q3P PRN 03/07 1637 DC 03/09 IV 0649 Oxycodone HCl 10 MG Q6P PRN 03/09 1030 AC 03/09 PO 1159 Oxycodone HCl 10 MG Q6 PRN 03/09 1030 CAN PO Oxycodone HCl 15 MG Q12 03/09 1000 AC 03/09 PO 1055 Oxycodone HCl 10 MG Q6 03/06 2359 DC 03/09 PO 0541 Polyethylene Glycol 17 GM DAILY 03/09 1000 AC 03/09 PO 1158 Senna/Docusate Sodium 2 TAB DAILY PRN 03/09 0915 AC PO Sodium Chloride 1,000 ML Q13H 03/09 1030 AC 03/09 IV 03/09 2329 1055 Venlafaxine HCl 150 MG 0800 03/07 0800 AC 03/09 PO 0830 Zolpidem Tartrate 5 MG QPM 03/09 2200 AC PO Zolpidem Tartrate 10 MG QPM 03/06 220 DC 03/08 PO 2119 Last 24 Hrs of Lab/Marcello Results Last 24 Hrs of Labs/Mics: Laboratory Tests 03/09/17 0655: Anion Gap 7, Estimated GFR 23 L, BUN/Creatinine Ratio 21.8, CBC w Diff NO MAN DIFF REQ, RBC 2.97 L, MCV 81.0, MCH 27.3, RDW 14.6 H, MPV 8.4, Gran % 81.5 H, Lymphocytes % 9.1 L, Monocytes % 6.9, Eosinophils % 2.3, Basophils % 0.2, Absolute Granulocytes 10.6 H, Absolute Lymphocytes 1.2, Absolute Monocytes 0.9 H, Absolute Eosinophils 0.3, Absolute Basophils 0, PUBS MCHC 33.7 Assessment/Plan Assessment: This is a 56-year-old female past medical history significant for IDDM, PVD, CAD status post [place] and stent, bipolar, right lower extremity osteoporosis status post amputation of all extremity digits, CK 80, BKA and left lower extremity, thyroid cancer status post thyroidectomy, who was referred to the emergency department by wound care center for redness, swelling, pain and wound over right leg and wound at the base of right sole. Patient is currently being managed in the general medical floor for the following issues: #Right lower extremity cellulitis over rojas: Patient currently being managed with IV antibiotics, will continue that, pending culture report. Getting better. Wound care consultation appreciated. Following recommendations. #Right lower extremity abscess over the sole: Patient underwent incision and drainage of the abscess with podiatry service on 03/08/17. Podiatry consultation appreciated. Ruling out osteomyelitis as well. According to podiatry service, patient still has open wound, thus should ideally be here over the weekend, and get a revision/superintendent institution Sunday. #Continuing rest of the home medications for now. Pain medication was optimized today. Morphine was discontinued, long-acting pain medication started along with short-acting for breakthrough pain. Full code Chemical DVT prophylaxis Heart healthy diet Problem List: 1. Abscess 2. Cellulitis 3. Anemia Pain Ratin Pain Location: rt foot Pain Goal: Pain 4 or less Pain Plan: pain plan changed today. Tomorrow's Labs & Rationales: CBC, BEP, Mg DARRIAN MCGINNIS,PATRICIO 03/09/17 1400: Attending MD Review Statement Attending Statement Attending MD Statement: examined this patient, discuss w/resident/PA/REFUELING RAMP SUPERVISOR, agreed w/resident/PA/REFUELING RAMP SUPERVISOR, reviewed EMR data (avail), discussed with nursing, discussed with case mgmt, amended to note Attending Assessment/Plan: Patient seen and examined. Lying in bed she was slightly lethargic this morning but improved later on. Complains of pain in the right lower extremity. She has been afebrile hemodynamically stable. Her white cell count is trending downwards. On examination she has intact dressing over the right foot. Problems: 1. Right lower extremity cellulitis with possible underlying abscess. 2. Rule out osteomyelitis. 3. Insulin-dependent diabetes mellitus 4. Chronic pain syndrome 5. Coronary artery disease. 6. MORAIMA on Chronic Kidney Disease. 7. Anxiety disorder on Xanax. Plan: -Follow-up with the orthopedic assistant service regarding any need for repeat or intervention. -Continue IV Unasyn pending culture results. -Once culture results obtained transition to oral antibiotics and complete 10 days of therapy. -She has been transitioned back to home insulin dose. Blood glucose levels were low yesterday but have improved today. -She appeared drowsy earlier on this morning but has improved. Discontinue morphine. Continue pain control with OxyContin for long-acting therapy and Roxicodone for breakthrough pain.
[2017-03-09 08:03] LABS: ABSOLUTE BASOPHIL COUNT 0 /CUMM (0.0-0.2); ABSOLUTE EOSINOPHIL COUNT 0.3 /CUMM (0.0-0.7); ABSOLUTE GRANULOCYTE CT 10.6 /CUMM (1.4-6.5); ABSOLUTE LYMPH COUNT 1.2 /CUMM (1.2-3.4); ABSOLUTE MONOCYTE COUNT 0.9 /CUMM (0.10-0.60); BASOPHIL % 0.2 % (0.0-2.0); EOSINOPHIL % 2.3 % (0-5); GRANULOCYTE % 81.5 % (42.2-75.2); HEMATOCRIT 24.1 % (37-47); MEAN CORPUSCULAR HGB 27.3 PG (27.0-31.0); MEAN CORPUSCULAR HGB CONC 33.7 G/DL (33.0-37.0); MEAN PLATELET VOLUME 8.4 FL (7.4-10.4); PLATELET COUNT 205 /CUMM (130-400); RBC DISTRIBUTION WIDTH 14.6 % (11.5-14.5); RED BLOOD CELL CT 2.97 /CUMM (4.20-5.40)
[2017-03-09 14:34] VITALS: BP 138/80
[2017-03-09 21:37] VITALS: BP 132/72
[2017-03-10 06:53] VITALS: BP 142/72
[2017-03-10 08:16] LABS: ABSOLUTE BASOPHIL COUNT 0 /CUMM (0.0-0.2); ABSOLUTE EOSINOPHIL COUNT 0.4 /CUMM (0.0-0.7); ABSOLUTE GRANULOCYTE CT 8.2 /CUMM (1.4-6.5); ABSOLUTE LYMPH COUNT 1.2 /CUMM (1.2-3.4); ABSOLUTE MONOCYTE COUNT 0.9 /CUMM (0.10-0.60); BASOPHIL % 0.5 % (0.0-2.0); EOSINOPHIL % 3.3 % (0-5); HEMATOCRIT 22.9 % (37-47); MEAN CORPUSCULAR HGB 27.2 PG (27.0-31.0); MEAN CORPUSCULAR HGB CONC 33.5 G/DL (33.0-37.0); MEAN CORPUSCULAR VOLUME 81.2 FL (81.0-99.0); PLATELET COUNT 235 /CUMM (130-400); RBC DISTRIBUTION WIDTH 15.1 % (11.5-14.5); RED BLOOD CELL CT 2.82 /CUMM (4.20-5.40); WHITE BLOOD CELL COUNT 10.8 /CUMM (4.8-10.8)
--- NOTE | 2017-03-10 08:49 | PN- Housestaff ---
BELEN MCGINNIS,FLOR 03/10/17 0848: Subjective Follow-up For: Right lower extremity wound, redness, pain. Subjective: I followed up and examined the patient today. She is resting comfortably in bed , does not appear to be in distress, and since that her pain management is not adequate, vitals have been stable. Her blood sugar has been on lower side today. Review of Systems Constitutional: Reports: no symptoms. Objective Last 24 Hrs of Vital Signs/I&O Vital Signs Date Time Temp Pulse Resp B/P B/P Pulse O2 O2 Flow FiO2 Mean Ox Delivery Rate 03/10 2229 98.3 79 20 154/74 97 Room Air 03/10 1802 97.7 72 20 160/82 96 Room Air 03/10 1550 98.1 68 20 116/70 95 Room Air 03/10 1019 142/72 03/10 0653 97.9 82 20 142/72 96 Intake & Output 03/10 1600 03/10 0800 03/10 0000 Intake Total 340 120 540 Output Total 1100 Balance 340 120 -560 Intake, IV 100 300 Intake, Oral 240 120 240 Output, Urine 1100 Physical Exam General Appearance: Alert, Oriented X3, Cooperative, No Acute Distress Other Physical Findings: Right leg is less swollen than yesterday, rest of the physical examination just the same as yesterday's. Current Medications: Current Medications Sig/Jesse Start time Last Medication Dose Route Stop Time Status Admin Acetaminophen 650 MG Q6 PRN 03/06 2130 AC 03/07 PO 1544 Alprazolam 2 MG TID 03/06 2200 AC 03/10 PO 03/13 2159 2212 Ampicillin Sodium/ 1,500 MG Q12 03/07 1000 AC 03/10 Sulbactam Sodium IV 2212 Sodium Chloride 100 ML Aripiprazole 10 MG DAILY 03/07 1000 AC 03/10 PO 1020 Atorvastatin Calcium 80 MG 1700 03/07 1700 AC 03/10 PO 1656 Clopidogrel Bisulfate 75 MG DAILY 03/07 1000 AC 03/10 PO 1019 Dextrose 25 GM ONCE ONE 03/10 2130 DC 03/10 IV 03/10 213 2130 Docusate Sodium 100 MG BID 03/09 1000 AC 03/10 PO 2211 Heparin Sodium 5,000 UNIT Q8 03/06 2200 AC 03/10 (Porcine) SC 2213 Insulin Aspart 0 TIDAC 03/08 1700 AC 03/10 SC 1228 Insulin Detemir 30 UNITS BID 03/06 2200 AC 03/10 SC 1021 Levothyroxine Sodium 0.2 MG DAILY AC 03/07 0700 AC 03/10 PO 0613 Metoprolol Tartrate 50 MG DAILY 03/07 1000 AC 03/10 PO 1019 Mirtazapine 15 MG QPM 03/06 2200 AC 03/10 PO 2211 Oxycodone HCl 10 MG Q6P PRN 03/09 1030 AC 03/10 PO 0612 Oxycodone HCl 15 MG Q12 03/09 1000 AC 03/10 PO 2212 Polyethylene Glycol 17 GM DAILY 03/09 1000 AC 03/10 PO 1018 Senna/Docusate Sodium 2 TAB DAILY PRN 03/09 0915 AC PO Sodium Chloride 1,000 ML Q13H 03/09 1030 DC 03/09 IV 03/09 2329 1055 Venlafaxine HCl 150 MG 0800 03/07 0800 AC 03/10 PO 1020 Zolpidem Tartrate 5 MG QPM 03/09 2200 AC 03/10 PO 2212 Last 24 Hrs of Lab/Marcello Results Last 24 Hrs of Labs/Mics: Laboratory Tests 03/10/17 0617: Anion Gap 7, Estimated GFR 22 L, BUN/Creatinine Ratio 22.2, Magnesium 2.0, CBC w Diff NO MAN DIFF REQ, RBC 2.82 L, MCV 81.2, MCH 27.2, RDW 15.1 H, MPV 8.0, Gran % 76.0 H, Lymphocytes % 11.6 L, Monocytes % 8.6, Eosinophils % 3.3, Basophils % 0.5, Absolute Granulocytes 8.2 H, Absolute Lymphocytes 1.2, Absolute Monocytes 0.9 H, Absolute Eosinophils 0.4, Absolute Basophils 0, PUBS MCHC 33.5 Assessment/Plan Assessment: This is a 56-year-old female past medical history significant for IDDM, PVD, CAD status post [place] and stent, bipolar, right lower extremity osteoporosis status post amputation of all extremity digits, CK 80, BKA and left lower extremity, thyroid cancer status post thyroidectomy, who was referred to the emergency department by wound care center for redness, swelling, pain and wound over right leg and wound at the base of right sole. Patient is currently being managed in the general medical floor for the following issues: #Right lower extremity cellulitis over rojas: Patient currently being managed with IV antibiotics, will continue that, pending culture report. Getting better. Wound care consultation appreciated. Following recommendations. #Right lower extremity abscess over the sole: Patient underwent incision and drainage of the abscess with podiatry service on 03/08/17. Podiatry consultation appreciated. Ruling out osteomyelitis as well. According to podiatry service, patient still has open wound, thus should ideally be here over the weekend, and get a revision/python django developer Sunday. #Continuing rest of the home medications for now. Pain medication: Long-acting pain medication along with short-acting for breakthrough pain. Full code Chemical DVT prophylaxis Heart healthy diet Problem List: 1. Abscess 2. Cellulitis 3. Anemia Pain Ratin Pain Location: RLE Pain Goal: Pain 4 or less Pain Plan: prn Tomorrow's Labs & Rationales: TREY YOUNG MD,[facility] 03/10/17 1348: Attending MD Review Statement Attending Statement Attending MD Statement: examined this patient, discuss w/resident/PA/HEALTHCARE CUSTOMER SERVICE, agreed w/resident/PA/HEALTHCARE CUSTOMER SERVICE, discussed with family, reviewed EMR data (avail), discussed with nursing, discussed with case mgmt, reviewed images, amended to note Attending Assessment/Plan: Patient resting comfortably in bed. Complains of foot pain. Overnight low blood sugar noted. Patient takes 30 units of Lantus twice a day at home along with short-acting insulin. White count is trended down to 10.8 from 13. Blood cultures remain negative. Recommendations: 1. Continue Unasyn, follow up with Dr. Nava. 2 reduce Levemir to 18 units twice a day. 3. Continue current regimen for pain. Encourage use of Tylenol if needed for breakthrough pain.
[2017-03-10 15:50] VITALS: BP 116/70
[2017-03-10 18:02] VITALS: BP 160/82
[2017-03-10 22:29] VITALS: BP 154/74
[2017-03-11 06:56] VITALS: BP 138/92
[2017-03-11 08:33] LABS: ABSOLUTE BASOPHIL COUNT 0 /CUMM (0.0-0.2); ABSOLUTE EOSINOPHIL COUNT 0.4 /CUMM (0.0-0.7); ABSOLUTE GRANULOCYTE CT 7.1 /CUMM (1.4-6.5); ABSOLUTE LYMPH COUNT 1.1 /CUMM (1.2-3.4); ABSOLUTE MONOCYTE COUNT 0.7 /CUMM (0.10-0.60); BASOPHIL % 0.5 % (0.0-2.0); EOSINOPHIL % 3.9 % (0-5); GRANULOCYTE % 76.1 % (42.2-75.2); HEMATOCRIT 25.6 % (37-47); MEAN CORPUSCULAR HGB 27.1 PG (27.0-31.0); MEAN CORPUSCULAR HGB CONC 33.8 G/DL (33.0-37.0); MEAN CORPUSCULAR VOLUME 80.4 FL (81.0-99.0); MEAN PLATELET VOLUME 7.6 FL (7.4-10.4); PLATELET COUNT 258 /CUMM (130-400); RBC DISTRIBUTION WIDTH 14.8 % (11.5-14.5); RED BLOOD CELL CT 3.19 /CUMM (4.20-5.40); WHITE BLOOD CELL COUNT 9.4 /CUMM (4.8-10.8)
--- NOTE | 2017-03-11 08:45 | PN- Housestaff ---
BELEN MCGINNIS,FLOR 03/11/17 0845: Subjective Follow-up For: Right lower extremity abscess, and leg cellulitis Subjective: I followed up and examined the patient today. She is resting comfortably in the bed, is alert, oriented, is not confused, and is not in distress. This morning, she was hypoglycemic requiring 2 pushes of IV dextrose and oral supplement. Of note, she had taken 18 units of Levemir at night. Vitals have remained stable and no issues otherwise. Review of Systems Constitutional: Reports: see HPI. Objective Last 24 Hrs of Vital Signs/I&O Vital Signs Date Time Temp Pulse Resp B/P B/P Pulse O2 O2 Flow FiO2 Mean Ox Delivery Rate 03/11 1546 97.1 61 20 130/88 03/11 1446 97.1 61 20 130/88 97 Room Air 03/11 0955 74 138/92 03/11 0656 97.5 79 20 138/92 96 03/10 2229 98.3 79 20 154/74 97 Room Air 03/10 1802 97.7 72 20 160/82 96 Room Air Intake & Output 03/11 1600 03/11 0800 03/11 0000 Intake Total 475 450 800 Output Total 600 651 Balance 475 -150 149 Intake, IV 175 100 Intake, Oral 300 350 800 Number 1 Bowel Movements Output, Stool 1 Output, Urine 600 650 Physical Exam General Appearance: Alert, Oriented X3, Cooperative, No Acute Distress Other Physical Findings: Right leg is less swollen than yesterday, rest of the physical examination just the same as yesterday's. Of note, she has a prosthetic left leg. Current Medications: Current Medications Sig/Jesse Start time Last Medication Dose Route Stop Time Status Admin Acetaminophen 650 MG Q6 PRN 03/06 2130 AC 03/07 PO 1544 Alprazolam 2 MG TID 03/06 2200 AC 03/11 PO 03/13 2159 0955 Ampicillin Sodium/ 1,500 MG Q12 03/07 1000 AC 03/11 Sulbactam Sodium IV 0959 Sodium Chloride 100 ML Aripiprazole 10 MG DAILY 03/07 1000 AC 03/11 PO 0955 Atorvastatin Calcium 80 MG 1700 03/07 1700 AC 03/10 PO 1656 Clopidogrel Bisulfate 75 MG DAILY 03/07 1000 AC 03/11 PO 0955 Dextrose 25 GM ONCE ONE 03/11 0315 DC 03/11 IV 03/11 0316 0315 Dextrose 25 GM ONCE ONE 03/10 2130 DC 03/10 IV 03/10 2131 2130 Docusate Sodium 100 MG BID 03/09 1000 AC 03/11 PO 0955 Heparin Sodium 5,000 UNIT Q8 03/06 2200 AC 03/11 (Porcine) SC 1426 Insulin Aspart 0 TIDAC 03/08 1700 AC 03/10 SC 1228 Insulin Detemir 12 UNITS BID 03/11 2200 AC SC Insulin Detemir 18 UNITS BID 03/11 1000 DC SC Insulin Detemir 15 UNITS ONCE ONE 03/10 2200 DC 03/10 SC 03/10 220 2200 Insulin Detemir 30 UNITS BID 03/06 2200 DC 03/10 SC 1021 Levothyroxine Sodium 0.2 MG DAILY AC 03/07 0700 AC 03/11 PO 0616 Metoprolol Tartrate 50 MG DAILY 03/07 1000 AC 03/11 PO 0955 Mirtazapine 15 MG QPM 03/06 2200 AC 03/10 PO 2211 Oxycodone HCl 10 MG Q6P PRN 03/09 1030 AC 03/10 PO 0612 Oxycodone HCl 15 MG Q12 03/09 1000 AC 03/11 PO 0957 Polyethylene Glycol 17 GM DAILY 03/09 1000 AC 03/11 PO 0955 Senna/Docusate Sodium 2 TAB DAILY PRN 03/09 0915 AC PO Venlafaxine HCl 150 MG 0800 03/07 0800 AC 03/11 PO 0954 Zolpidem Tartrate 5 MG QPM 03/09 2200 AC 03/10 PO 2212 Last 24 Hrs of Lab/Marcello Results Last 24 Hrs of Labs/Mics: Laboratory Tests 03/11/17 0735: Anion Gap 7, Estimated GFR 25 L, BUN/Creatinine Ratio 23.8, CBC w Diff NO MAN DIFF REQ, RBC 3.19 L, MCV 80.4 L, MCH 27.1, RDW 14.8 H, MPV 7.6, Gran % 76.1 H, Lymphocytes % 11.8 L, Monocytes % 7.7, Eosinophils % 3.9, Basophils % 0.5, Absolute Granulocytes 7.1 H, Absolute Lymphocytes 1.1 L, Absolute Monocytes 0.7 H, Absolute Eosinophils 0.4, Absolute Basophils 0, PUBS MCHC 33.8 Assessment/Plan Assessment: This is a 56-year-old female past medical history significant for IDDM, PVD, CAD status post [place] and stent, bipolar, right lower extremity osteoporosis status post amputation of all extremity digits, CK 80, BKA and left lower extremity, thyroid cancer status post thyroidectomy, who was referred to the emergency department by wound care center for redness, swelling, pain and wound over right leg and wound at the base of right sole. Patient is currently being managed in the general medical floor for the following issues: #Right lower extremity cellulitis over rojas: Patient currently being managed with IV antibiotics, will continue that, pending culture report. Getting better. Wound care consultation appreciated. Following recommendations. #Right lower extremity abscess over the sole: Patient underwent incision and drainage of the abscess with podiatry service on 03/08/17. Podiatry consultation appreciated. Ruling out osteomyelitis as well. According to podiatry service, patient still has open wound, thus should ideally be here over the weekend, and get a revision/manager personnel selection Sunday. Have ordered her to be NPO from [place]. #Of note, patient has stable anemia. Hb of 11 initially was also be due to dehydration/hemoconcentration. #Continuing rest of the home medications for now. Pain medication: Long-acting pain medication along with short-acting for breakthrough pain. Full code Chemical DVT prophylaxis Heart healthy diet Problem List: 1. Abscess 2. Cellulitis 3. Anemia Pain Ratin Pain Location: RLE Pain Goal: Pain 4 or less Pain Plan: prn Tomorrow's Labs & Rationales: TREY YOUNG MD,[facility] 03/11/17 1413: Attending MD Review Statement Attending Statement Attending MD Statement: examined this patient, discuss w/resident/PA/ROADMASTER, agreed w/resident/PA/ROADMASTER, discussed with family, reviewed EMR data (avail), discussed with nursing, discussed with case mgmt, reviewed images, amended to note Attending Assessment/Plan: Patient resting comfortably in bed. Still has some foot pain. Results of hypoglycemia noted. White count within normal limits. Recommendations 1. Reduce Levemir to 12 units twice a day. 2. Defer checking more blood work for tomorrow. 3. Continue Unasyn for now and follow up with Dr. Nava 4. Please encourage the use of Tylenol along with opioids.
[2017-03-11 14:46] VITALS: BP 130/88
[2017-03-11 15:46] VITALS: BP 130/88
--- NOTE | 2017-03-11 16:51 | RADIOLOGY REPORT ---
EXAMINATION: XR SHOULDER, LEFT CLINICAL INFORMATION: Pain in left shoulder. COMPARISON: 08/11/2016. TECHNIQUE: Three views of the left shoulder. FINDINGS: The acromioclavicular and glenohumeral joints are normal in appearance. No fracture, dislocation or acute osseous abnormality is seen. IMPRESSION: Normal left shoulder.
[2017-03-11 22:52] VITALS: BP 130/76
[2017-03-12 06:48] VITALS: BP 145/73
--- NOTE | 2017-03-12 07:59 | PN- Housestaff ---
BELEN MCGINNIS,FLOR 03/12/17 0759: Subjective Follow-up For: Right lower extremity abscess, and leg cellulitis Subjective: I followed up and examined the patient today. She is resting comfortably in bed, vitals have been stable, no overnight issues. She is currently nothing by mouth , awaiting for surgical procedure later today. Review of Systems Constitutional: Reports: no symptoms. Objective Last 24 Hrs of Vital Signs/I&O Vital Signs Date Time Temp Pulse Resp B/P B/P Pulse O2 O2 Flow FiO2 Mean Ox Delivery Rate 03/12 2036 98.4 66 18 188/90 95 Room Air 06/ 1432 98.2 60 20 138/70 96 Room Air / 1022 97.6 63 143/73 03/12 0921 Room Air / 0800 95 Room Air / 0648 97.6 63 20 145/73 94 /04 2252 97.6 68 20 130/76 95 Room Air Intake & Output 03/12 1600 /05 0800 06 0000 Intake Total 400 520 480 Output Total Balance 400 520 480 Intake, IV 400 400 Intake, Oral 0 120 480 Physical Exam General Appearance: Alert, Oriented X3, Cooperative Other Physical Findings: No significant difference in clinical examination from yesterday. Current Medications: Current Medications Sig/Jesse Start time Last Medication Dose Route Stop Time Status Admin Acetaminophen 650 MG Q6 PRN 03/06 2130 AC 03/07 PO 1544 Alprazolam 2 MG TID 03/06 2200 AC 03/12 PO 03/13 2159 2059 Amlodipine Besylate 5 MG ONCE ONE 03/125 DC PO 03/12 2116 Ampicillin Sodium/ 1,500 MG Q12 03/07 1000 AC 03/12 Sulbactam Sodium IV 205 Sodium Chloride 100 ML Aripiprazole 10 MG DAILY 03/07 1000 AC 03/12 PO 1022 Atorvastatin Calcium 80 MG 1700 03/07 1700 AC 03/11 PO 1749 Clopidogrel Bisulfate 75 MG DAILY 03/07 1000 AC 03/12 PO 1021 Dextrose/Sodium 1,000 ML Q20H / 2300 DC / Chloride IV 03/12 1859 2331 Docusate Sodium 100 MG BID / 1000 AC / PO 1022 Heparin Sodium 5,000 UNIT Q8 03/06 2200 AC 03/12 (Porcine) SC 2100 Insulin Aspart 0 TIDAC 03/13 0800 AC SC Insulin Aspart 0 TIDAC 03/08 1700 DC 03/10 [place] 03/12 0000 1228 Insulin Detemir 6 UNITS ONCE ONE 03/12 1045 DC 03/12 [place] 03/12 1046 1044 Insulin Detemir 12 UNITS BID 03/11 2200 AC 03/11 SC 2235 Insulin Human Regular 0 Q6 03/12 0600 OR 03/12 SC 0610 Levothyroxine Sodium 0.2 MG DAILY AC 03/07 0700 AC 03/12 PO 0610 Metoprolol Tartrate 50 MG DAILY 03/07 1000 AC 03/12 PO 1022 Mirtazapine 15 MG QPM 03/06 2200 AC 03/12 PO 205 Oxycodone HCl 10 MG Q6P PRN 03/09 1030 AC 03/12 PO 2043 Oxycodone HCl 15 MG Q12 03/09 1000 AC 03/12 PO 2100 Patient Medication 1 ED .STK-MED ONE 03/12 1410 OR Teaching ED 03/12 1411 Polyethylene Glycol 17 GM DAILY 03/09 1000 AC 03/12 PO 1022 Senna/Docusate Sodium 2 TAB DAILY PRN 03/09 0915 AC PO Venlafaxine HCl 150 MG 0800 03/07 0800 AC 03/12 PO 1022 Zolpidem Tartrate 5 MG QPM 03/09 2200 AC 03/12 PO 2058 Last 24 Hrs of Lab/Marcello Results Last 24 Hrs of Labs/Mics: Laboratory Tests 03/12/17 0620: Anion Gap 5, Estimated GFR 31 L, BUN/Creatinine Ratio 27.6 H, CBC w Diff NO MAN DIFF REQ, RBC 3.22 L, MCV 80.3 L, MCH 27.2, RDW 15.0 H, MPV 7.9, Gran % 73.8, Lymphocytes % 13.3 L, Monocytes % 8.8, Eosinophils % 3.7, Basophils % 0.4 , Absolute Granulocytes 6.4, Absolute Lymphocytes 1.2, Absolute Monocytes 0.8 H , Absolute Eosinophils 0.3, Absolute Basophils 0, PUBS MCHC 33.9 Assessment/Plan Assessment: This is a 56-year-old female past medical history significant for IDDM, PVD, CAD status post OK and stent, bipolar, right lower extremity osteoporosis status post amputation of all extremity digits, CK 80, BKA and left lower extremity, thyroid cancer status post thyroidectomy, who was referred to the emergency department by wound care center for redness, swelling, pain and wound over right leg and wound at the base of right sole. Patient is currently being managed in the general medical floor for the following issues: #Right lower extremity cellulitis over rojas: Patient currently being managed with IV antibiotics, will continue that, pending culture report. Getting better. Wound care consultation appreciated. Following recommendations. #Right lower extremity abscess over the sole: Patient underwent incision and drainage of the abscess with podiatry service on 03/08/17. Podiatry consultation appreciated. Ruling out osteomyelitis as well. According to podiatry service, patient still has open wound, and is getting a revision/closer later today. She is currently NPO. Continuing Unasyn day 7 today. Need to decide on abx duration per Podiatry. #Of note, patient has stable anemia. Hb of 11 initially was also be due to dehydration/hemoconcentration. #Continuing rest of the home medications for now. Pain medication: Long-acting pain medication along with short-acting for breakthrough pain. Full code Chemical DVT prophylaxis Heart healthy diet Problem List: 1. Abscess 2. Diabetes Pain Ratin Pain Location: RLE Pain Goal: Pain 4 or less Pain Plan: prn Tomorrow's Labs & Rationales: CBC, [facility]: Attending MD Review Statement Attending Statement Attending MD Statement: examined this patient, discuss w/resident/PA/SENIOR CHEMIST, agreed w/resident/PA/SENIOR CHEMIST, reviewed EMR data (avail) Attending Assessment/Plan: 56F PMH IDDM, PVD, CAD s/p PCI, bipolar disorder, LLE BKA, RLE osteomyelitis s/p toes amputation, thyroid cancer status post thyroidectomy, admitted for right foot cellulitis and abscess s/p I&D on 03/09, with multiple bilateral chronic venous ulcers. Patient reports pain well controlled with pain meds. Afebrile, stable vitals, labs unremarkable. 1. RLE cellulitis and abscess 2. Chronic venous stasis ulcers 3. MORAIMA 4. CKD stage 3 5. IDDM Plan - Continue on general medicine - To OR for revision today - Follow podiatry and wound care recommendations - Continue Unasyn - Follow cultures - Monitor glucose levels - Continue home medications - DVT PPx
[2017-03-12 08:15] LABS: ABSOLUTE BASOPHIL COUNT 0 /CUMM (0.0-0.2); ABSOLUTE EOSINOPHIL COUNT 0.3 /CUMM (0.0-0.7); ABSOLUTE GRANULOCYTE CT 6.4 /CUMM (1.4-6.5); ABSOLUTE LYMPH COUNT 1.2 /CUMM (1.2-3.4); ABSOLUTE MONOCYTE COUNT 0.8 /CUMM (0.10-0.60); BASOPHIL % 0.4 % (0.0-2.0); EOSINOPHIL % 3.7 % (0-5); GRANULOCYTE % 73.8 % (42.2-75.2); HEMATOCRIT 25.9 % (37-47); MEAN CORPUSCULAR HGB 27.2 PG (27.0-31.0); MEAN CORPUSCULAR HGB CONC 33.9 G/DL (33.0-37.0); MEAN CORPUSCULAR VOLUME 80.3 FL (81.0-99.0); MEAN PLATELET VOLUME 7.9 FL (7.4-10.4); PLATELET COUNT 243 /CUMM (130-400); RED BLOOD CELL CT 3.22 /CUMM (4.20-5.40); WHITE BLOOD CELL COUNT 8.7 /CUMM (4.8-10.8)
--- NOTE | 2017-03-12 08:21 | PN- Wound Care ---
Subjective Subjective: Patient feels improved status post drainage of right foot plantar abscess. Right lower extremity venous ulcers have healed significantly with only minor residual ulcers. Prior slough and eschar has resolved erythema has resolved Objective Vital Signs and I&Os Vital Signs Result Date Time Pulse Ox 94 03/12 0648 B/P 145/73 03/12 0648 Temp 97.6 03/12 0648 Pulse 63 03/12 0648 Resp 20 03/12 0648 O2 Delivery Room Air 03/11 2252 Intake & Output 03/12 0000 03/11 1600 03/11 0800 Intake Total 480 475 450 Output Total 600 Balance 480 475 -150 Intake, IV 175 100 Intake, Oral 480 300 350 Output, Urine 600 Marked improvement in right lower extremity venous stasis ulcers. Slough is resolved and wounds are almost healed to closure Impression/Plan Impression/Plan Impression/Plan: 56-year-old with chronic kidney disease diabetes peripheral vascular disease status post left BKA right TMA admitted with right lower extremity cellulitis and right plantar abscess. Right low 70 venous stasis ulcers are markedly improved. Continue leg elevation daily Xeroform and cleansing
--- NOTE | 2017-03-12 11:31 | Discharge Summary ---
Visit Information Visit Dates Admission Date: 03/06/17 Discharge Date: 03/14/17 Hospital Course Course Attending Physician: PATRICIO COLMENARES M.D Primary Care Physician: ADE MCGINNIS,KHUSHBU Lau Consulting Request: 1 Consulting Specialty: Infectious Disease Consulting Physician: Dr. Kc Consulting Request: 2 Consulting Specialty: Podiatry Consulting Physician: Dr. Wing Hospital Course: 56 year old female with multiple comorbidities including insulin dependent diabetes, hypertension, thyroid cancer s/p thyroidectomy, hypothyroidism, PAD, bipolar disorder, CKD, BKA of LLE in 2013, Hepatitis C, poor wound healing and osteomyelitis came for right lower extremity redness, warmth, increased swelling , tenderness along with subjective fever. Patient was found to have significant leukocytosis in the emergency room with elevated creatinine, normal anion gap with lactate at 1.7. Patient appeared to have cellulitis of the right lower extremity and an abscess collection on the bottom of the Rt foot. She also had superficial wounds on rojas which did not show any pus or discharge. Of note, she recently underwent angioplasty for same extremity. Patient has a history of diastolic dysfunction on echocardiogram done on March 2016 and significant coronary artery disease. Problem List #Sepsis secondary to cellulitis: Patient presented with leukocytosis (WBC count 26.2/CUMM and Granulocytes of 87%) of 26.2 with Tmax 100 and tachycardia up to 104F, thus fulfilling SIRS criteria. Her infectious source was attributed to cellulitis and abscess in her right lower extremity. She was treated with IV unasyn and her fever and leukocytosis resolved (was 10.7 prior to discharge). #Right lower extremity cellulitis over the rojas and platnar abscess: Patient underwent incision and drainage of a right plantar space abscess with podiatry service and subsequently got a revision of the wound. She recieved 7 days of IV Unasyn during the hospitalization. Blood cultures showed no growth after 5 days. Wound care consultation was obtained and she was reviewed by Dr. Castillo with recommendations for wound care with Xeroform gauze over scabs and right foot elevation. She was discharged to complete 6 more days of Augmentin upon discharge. Per podiatry Dr. Wing recommendation, patient remains strict non weight bearing at the time of discharge. # Acute on CKD Her creatinine was elevated at admission at 2, most likely due to dehydration. She was hydrated with normal saline. Her potasium als became slightly elevated on admission and her lasix and Lisinopril were held during the admission and on discharge. She was instructed to hold the medications and recheck her BEP to be checked again 3-4 day following discharge to check for resolution of her elevated potassium. #Chronic anemia: Patient had a drop in Hb from 11 to 9.2 after 24 hrs of admission and hydration. This was felt to be due to dehydration/ hemoconcentration. Her hemoglobin was stable at 8.5 without any transfusions prior to discharge. #Insulin Dependent Diabetes Mellitus-She was maintained on levemir, and novolog sliding scale with a diabetic diet. Her other home medications were continued including lipitor, metoprolol, abilify , effexor and remeron. Complications: none Allergies: Coded Allergies: NSAIDS (Non-Steroidal Anti-Inflamma (TONGUE SWELLING 01/20/16) ibuprofen (TONGUE SWELLING 01/20/16) codeine ("HEART FEELS FUNNY" 03/12/16) ketorolac (From TORADOL) (NAUSEA 03/12/16) lithium (HALLUCINATIONS 03/12/16) tramadol (vomit 03/12/16) Significant Procedures: 1 open incision and drainage deep to the deep fascia with exposure of the flexor tendon and tendon sheath multiple sites right foot 2 delayed primary closure of open surgical wound right foot 3 intraoperative administration of ankle block anesthesia 4 excisional debridement Disposition Summary Disposition Principal Diagnosis: 1. RLE cellulitis and plantar abscess s/p I&D 2. Sepsis from right leg cellulitis Additional Diagnosis: 3. Chronic venous stasis ulcers 4. MORAIMA 5. CKD stage 3 6. IDDM Discharge Disposition: STR Discharge Instructions General Discharge Information Code Status: Full Code Patient's Diet: Diabetic Diet Patient's Activity: As tolerated Follow-Up Instructions/Appts: Please follow up with Dr. Nava (rn transplant), Dr. Wells (wound care) and your primary care provider within 1 week of discharge. Check BEP again in 3-4 days to monitor renal function. Until then nephrotoxins ( Lasix and Lisinopril to be held). Medications at Discharge Discharge Medications: Stop taking the following medications: Lisinopril (Lisinopril) 5 MG TABLET ORAL DAILY Qty = 30 Furosemide (Lasix) 40 MG TABLET ORAL TWICE DAILY Qty = 30 Metoprolol Tartrate (Metoprolol Tartrate) 50 MG TABLET ORAL DAILY Qty = 30 Continue taking these medications: Clopidogrel Bisulfate (Clopidogrel) 75 MG TABLET 1 Tablet ORAL DAILY Comments: Last Taken: 03/14/17 Time: 0845AM Venlafaxine HCl (Venlafaxine HCl ER) 150 MG CAP.ER.24H 2 Capsule ORAL DAILY Comments: Last Taken: 03/14/17 Time: 0745AM Atorvastatin Calcium (Lipitor) 80 MG TABLET 1 Tablet ORAL DAILY Comments: Last Taken:03/13/17 Time: 1600PM Levothyroxine Sodium (Levothyroxine Sodium) 200 MCG TABLET 1 Tablet ORAL DAILY Qty = 60 Comments: Last Taken: 03/14/17 Time: 0645AM Insulin Detemir (Levemir) 100 UNIT/1 ML VIAL 30 Units Inject into fatty tissue TWICE DAILY Days = 30 Comments: Last Taken: 03/14/17 Time: 0845AM Carvedilol (Carvedilol) 6.25 MG TABLET 1 Tablet ORAL TWICE DAILY Comments: NOT GIVEN Calcium Carbonate/Vitamin D3 (Calcium 600 + Vit D 400 Tablet) 1 EACH TABLET 1 Tablet ORAL THREE TIMES DAILY Days = 30 Comments: NOT GIVEN Aripiprazole (Abilify) 10 MG TABLET 1 Tablet ORAL DAILY Comments: Last Taken: 03/14/17 Time: 0845AM Mirtazapine (Mirtazapine) 15 MG TABLET 1 Tablet ORAL Every night Qty = 30 Comments: Last Taken: 03/13/17 Time: 2200PM Insulin Lispro (Humalog) 100 UNIT/ML VIAL Units Inject into fatty tissue BEFORE MEALS AND AT BEDTIME Qty = 10 Comments: Last Taken:03/14/17 Time: 1245PM Oxycodone HCl (Oxycodone HCl) 10 MG TABLET 1 Tablet ORAL 4XDAILY Qty = 120 Comments: Last Taken: 03/13/17 Time: 1330PM Alprazolam (Alprazolam) 2 MG TABLET 1 Tablet ORAL THREE TIMES DAILY Qty = 90 Comments: Last Taken:03/14/17 Time: 1600PM Zolpidem Tartrate (Zolpidem Tartrate) 10 MG TABLET 1 Tablet ORAL Every night Qty = 30 Comments: Last Taken: 03/13/17 Time: 2200PM Start taking the following new medications: Augmentin (Augmentin 500-125 Tablet) 500 MG-125 MG TABLET 500 Milligram ORAL EVERY 12 HOURS Qty = 12 No Refills Instructions: TAKE IT TWICE A DAY FROM 03/14-03/19. Comments: Last Taken: 03/14/17 Time: 0845AM Metoprolol Succ XL (Toprol Xl) 50 MG TAB 1 Tablet ORAL DAILY Qty = 30 Refills = 1 Comments: Last Taken: 03/14/17 Time: 0845AM Copies To: BK MCGINNIS,MIRIAM BOOKER MD,KHUSHBU Lau
[2017-03-12 14:32] VITALS: BP 138/70
--- NOTE | 2017-03-12 19:14 | Operative Report ---
Operative/Inv Procedure Report Surgery Date: 03/12/17 Name of Procedure: 1 open incision and drainage deep to the deep fascia with exposure of the flexor tendon and tendon sheath multiple sites right foot 2 delayed primary closure of open surgical wound right foot 3 intraoperative administration of ankle block anesthesia 4 excisional debridement Pre-Operative Diagnosis: 1 open necrotic wound right foot 2 diabetic peripheral neuropathy Post-Operative Diagnosis: The same Estimated Blood Loss: less than 50ml Surgeon/Drier Tender: LIZET DOLAN DPM Anesthesia: moderate sedation, block Operative/Procedure Note Note: After obtaining informed consent the patient was brought to the operating room and placed on the operating table in supine position. The patient isn't securely fastened to the operating table utilizing safety belt. After administration of IV sedation, 10 mL of 0.5% Marcaine plain was infiltrated about the patient's right ankle. The right foot and ankle within scrubbed prepped and draped in usual aseptic manner. Attention directed the plantar aspect of the right foot, where a large full-thickness necrotic was identified. A 15 blade was utilized sharply revised skin margins. Dissection was then carried down deep to the fascia with exposure of the flexor tendon and tendon sheath multiple sites, both proximally and distally. All necrotic nonviable infected tissue sharply evacuated from the wound bed. Nipple was then irrigated with 3 L of normal sterile saline infusion 50,000 units of bacitracin. Following this, the foot was redraped and the surgeon's top gloves were changed clean gloves. Proximal plantar and distal plantar flap was then developed with undermining, mobilization and advancement adjacent tissues. The deep side of the flap was held centrally with 2-0 Vicryl. Subtenons tissues reapproximated 3 -0 Vicryl. Skin edges were then reapproximated with 2-0 nylon. The incision was dressed with Xeroform 4 x 4's Kerlix and Chang wrap. The patient was noted to tolerate both procedure and anesthesia well and the patient was transported from the operating room to recovery with vital signs stable best assess intact to both the distal and proximal plantar flaps.
[2017-03-12 20:36] VITALS: BP 188/90
[2017-03-12 21:41] VITALS: BP 138/72
[2017-03-12 23:23] VITALS: BP 132/82
--- NOTE | 2017-03-13 06:09 | PN- Housestaff ---
See Addendum Subjective Follow-up For: Right lower extremity cellulitis Plantar space abscess Subjective: Patient seen and examined this morning. Remains afebrile and HDS s/p I&D yest. Resting comfortably in bed with no acute complaints other than pain in the RLE at the procedure site. Denies any fever, chills, chest discomfort, palpitations, dyspnea, abdominal pain, nausea, vomiting, headache. No events reported overnight. Review of Systems Constitutional: Reports: see HPI. Objective Last 24 Hrs of Vital Signs/I&O Vital Signs Date Time Temp Pulse Resp B/P B/P Pulse O2 O2 Flow FiO2 Mean Ox Delivery Rate 03/13 0935 81 138/70 03/13 0806 97.9 81 18 138/70 95 Room Air 06/ 2323 97.4 78 16 132/82 92 Room Air 03/12 2141 138/72 06/ 2036 98.4 66 18 188/90 95 Room Air / 1432 98.2 60 20 138/70 96 Room Air Intake & Output 03/13 1600 03/13 0800 03/13 0000 Intake Total 480 480 Output Total 1200 Balance -720 480 Intake, Oral 480 480 Output, Urine 1200 Physical Exam General Appearance: Alert, Oriented X3, Cooperative, No Acute Distress Other Physical Findings: Skin Erythema and warmth in the RLE. Dressing intact with no obvious bleeding or dischage. HEENT Atraumatic, PERRLA, EOMI, Mucous Membr. moist/pink Neck Supple Cardiovascular Regular Rate, Normal S1, Normal S2, No Murmurs Lungs Clear to Auscultation Abdomen Soft, No Tenderness Extremities LLE with prosthesis; RLE well dressed with no obvious bleeding/ dischage/leakage. Current Medications: Current Medications Sig/Jesse Start time Last Medication Dose Route Stop Time Status Admin Acetaminophen 650 MG Q6 PRN 03/06 2130 AC 03/07 PO 1544 Alprazolam 2 MG TID 03/06 2200 AC 03/13 PO 03/13 2159 0935 Amlodipine Besylate 5 MG ONCE ONE 03/12 2115 CAN PO 03/12 211 Ampicillin Sodium/ 1,500 MG Q12 03/07 1000 AC 03/13 Sulbactam Sodium IV 0942 Sodium Chloride 100 ML Aripiprazole 10 MG DAILY 03/07 1000 AC 03/13 PO 0935 Atorvastatin Calcium 80 MG 1700 03/07 1700 AC 03/11 PO 1749 Clopidogrel Bisulfate 75 MG DAILY 03/07 1000 AC 03/13 PO 0935 Dextrose/Sodium 1,000 ML Q20H 03/11 2300 DC 03/11 Chloride IV 03/12 1859 2331 Docusate Sodium 100 MG BID 03/09 1000 AC 03/13 PO 0935 Fentanyl Citrate 100 MCG .STK-MED ONE 03/12 1804 DC IM 03/12 1805 Heparin Sodium 5,000 UNIT Q8 03/06 2200 AC 03/13 (Porcine) SC 0605 Insulin Aspart 0 TIDAC 03/13 0800 AC SC Insulin Detemir 12 UNITS BID 03/11 2200 AC 03/13 SC 0942 Insulin Human Regular 0 Q6 03/12 0600 DC 03/12 SC 0610 Levothyroxine Sodium 0.2 MG DAILY AC 03/07 0700 AC 03/13 PO 0605 Metoprolol Tartrate 50 MG DAILY 03/07 1000 AC 03/13 PO 0935 Midazolam HCl 2 MG .STK-MED ONE 03/12 1804 DC IM 03/12 1805 Mirtazapine 15 MG QPM 03/06 2200 AC 03/12 PO 2059 Oxycodone HCl 10 MG Q4 HRS NEEDED PRN 03/13 1030 AC PO Oxycodone HCl 10 MG Q6P PRN 03/09 1030 DC 03/13 PO 0624 Oxycodone HCl 15 MG Q12 03/09 1000 AC 03/13 PO 0936 Patient Medication 1 ED .STK-MED ONE 03/12 1410 OR Teaching ED 03/12 1411 Polyethylene Glycol 17 GM DAILY 03/09 1000 AC 03/13 PO 0936 Senna/Docusate Sodium 2 TAB DAILY PRN 03/09 0915 AC PO Venlafaxine HCl 150 MG 0800 03/07 0800 AC 03/13 PO 0935 Zolpidem Tartrate 5 MG QPM 03/09 2200 AC 03/12 PO 205 Last 24 Hrs of Lab/Marcello Results Last 24 Hrs of Labs/Mics: Laboratory Tests 03/13/17 0735: Anion Gap 5, Estimated GFR 31 L, BUN/Creatinine Ratio 24.1, CBC w Diff NO MAN DIFF REQ, RBC 3.18 L, MCV 80.8 L, MCH 27.0, RDW 14.8 H, MPV 7.8, Gran % 78.4 H, Lymphocytes % 12.3 L, Monocytes % 6.2, Eosinophils % 2.8, Basophils % 0.3, Absolute Granulocytes 7.2 H, Absolute Lymphocytes 1.1 L, Absolute Monocytes 0.6, Absolute Eosinophils 0.3, Absolute Basophils 0, PUBS MCHC 33.4 Assessment/Plan Assessment: 56-year-old female past medical history significant for insulin-dependent diabetes, PVD, right lower extremity toe amputation, CAD status post stenting, bipolar, substance abuse, depression, CK D likely secondary to diabetes and hepatitis C, BKA of her left lower extremity in 2013, thyroid cancer status post thyroidectomy, who was admitted to service for cellulitis in the RLE and plantar abscess in the right sole. # Sepsis 2/2 cellulitis - resolved Patient presented with leukocytosis (TUBE COATER 87%) of 26.2 with Tmax 100 and tachycardia up to 104. Infectious source attributed to cellulitis and abscess in the RLE. * Vitals protocol * Monitor for signs of infection and hemodynamic stability * Continue abx therapy as below * ID consulted, appreciate recs # RLE cellulitis over the rojas with a plantar abscess No radiographic evidence for osteomyelitis on x-ray. She currently remains HDS and afebrile with no SIRS s/p I&D by Dr. Nava on 03/08 and 03/12. * Continue IV Unasyn - day 7 * Adequate pain control with oxycontin 15 mg PO BID with Roxicodone 10mg Q4P * Appreciate ID, podiatry and wound care recs # CKD 2/2 secondary to uncontrolled diabetes mellitus. Renal fx remaining stable around baseline currently. * Monitor BEP daily, trend renal fx - stable # Diabetes mellitus * SSI with accuchecks * Diabetic diet # Hx of CAD, HTN * Cont home meds metoprolol 50mg PO QD, Plavix 75mg QD and Lipitor 80mg QD # Chronic medical conditions Patient carries a hx of hypothyroidism, depression/anxiety * Continue home meds - Full code - Moderate/severe pain pathway - Chemical DVT prophylaxis - Heart healthy diet Problem List: 1. Abscess 2. COPD (chronic obstructive pulmonary disease) 3. Cellulitis Pain Ratin Pain Location: RLE Pain Goal: Pain 7 or less Pain Plan: Moderate pathway Tomorrow's Labs & Rationales: CBC BEP
[2017-03-13 08:06] VITALS: BP 138/70
[2017-03-13 08:42] LABS: ABSOLUTE BASOPHIL COUNT 0 /CUMM (0.0-0.2); ABSOLUTE EOSINOPHIL COUNT 0.3 /CUMM (0.0-0.7); ABSOLUTE GRANULOCYTE CT 7.2 /CUMM (1.4-6.5); ABSOLUTE LYMPH COUNT 1.1 /CUMM (1.2-3.4); ABSOLUTE MONOCYTE COUNT 0.6 /CUMM (0.10-0.60); BASOPHIL % 0.3 % (0.0-2.0); EOSINOPHIL % 2.8 % (0-5); GRANULOCYTE % 78.4 % (42.2-75.2); HEMATOCRIT 25.7 % (37-47); MEAN CORPUSCULAR HGB CONC 33.4 G/DL (33.0-37.0); MEAN CORPUSCULAR VOLUME 80.8 FL (81.0-99.0); MEAN PLATELET VOLUME 7.8 FL (7.4-10.4); PLATELET COUNT 258 /CUMM (130-400); RBC DISTRIBUTION WIDTH 14.8 % (11.5-14.5); RED BLOOD CELL CT 3.18 /CUMM (4.20-5.40); WHITE BLOOD CELL COUNT 9.2 /CUMM (4.8-10.8)
[2017-03-13 15:06] VITALS: BP 140/80
--- NOTE | 2017-03-13 17:23 | Cons- Infect Disease ---
General Information and HPI Consulting Request Date of Consult: 03/13/17 Requested By: PATRICIO COLMENARES M.D Reason for Consult: Abscess right foot Source of Information: patient, old records History of Present Illness: This is a 56-year-old woman with diabetes, coronary artery disease, status post stent, chronic kidney disease, Hepatitis C and peripheral vascular disease, status post left BKA and right TMA, status post recent right leg angioplasty, admitted on March 06 after she was sent to the emergency room from the wound care clinic because of a fever to 102.5 and increasing pain and erythema of the right lower extremity. On admission she was afebrile. Laboratory data revealed a white blood cell count of 26,000, BUN/creatinine 36 and 2.0, alkaline phosphatase 159, AST/ALT 31 and 59. X-ray of the right foot revealed postop changes with no acute process. X-ray of the right tibia-fibula was negative. Doppler of the right lower extremity was negative. She was begun on Unasyn. An MRI of the right foot on March 07 revealed a 1.4 cm collection in the subcutaneous fat in the plantar soft tissue of the midfoot with no evidence of underlying osteomyelitis. She was initially taken to the OR on March 08 for an I&D of a plantar space abscess of the right foot, with 10 mL of pus drained. She went back to the OR on March 12 for further I&D and delayed primary closure of the right foot wound. She had a temperature to 100 on March 07 but has otherwise been afebrile, and her white blood cell count has normalized. She reports continued pain and swelling of the right leg and notes no improvement since admission. Allergies/Medications Allergies: Coded Allergies: NSAIDS (Non-Steroidal Anti-Inflamma (TONGUE SWELLING 01/20/16) ibuprofen (TONGUE SWELLING 01/20/16) codeine ("HEART FEELS FUNNY" 03/12/16) ketorolac (From TORADOL) (NAUSEA 03/12/16) lithium (HALLUCINATIONS 03/12/16) tramadol (vomit 03/12/16) Home Med List: Alprazolam 2 MG TABLET 1 TAB PO TID ANXIETY (Reported) Aripiprazole (Abilify) 10 MG TABLET 1 TAB PO DAILY SCHIZOPHRENIA (Reported) Atorvastatin Calcium (Lipitor) 80 MG TABLET 1 TAB PO DAILY CHOLESTEROL ( Reported) Calcium Carbonate/Vitamin D3 (Calcium 600 + Vit D 400 Tablet) 1 EACH TABLET 1 TAB PO TID CALCIUM SUPPLEMENT Carvedilol 6.25 MG TABLET 1 TAB PO BID HEART (Reported) Clopidogrel Bisulfate (Clopidogrel) 75 MG TABLET 1 TAB PO DAILY BLOOD THINNER (Reported) Furosemide (Lasix) 40 MG TABLET 40 MG PO BID FLUID RETENTION Insulin Detemir (Levemir) 100 UNIT/1 ML VIAL 30 UNITS SC BID BLOOD SUGARS Insulin Lispro (Humalog) 100 UNIT/ML VIAL DM (Reported) Levothyroxine Sodium 200 MCG TABLET 1 TAB PO DAILY THYROID (Reported) Lisinopril 5 MG TABLET 5 MG PO DAILY KIDNEY HEALTH Metoprolol Tartrate 50 MG TABLET 1 TAB PO DAILY HEART/BP (Reported) Mirtazapine 15 MG TABLET 1 TAB PO QPM MENTAL HEALTH (Reported) Oxycodone HCl 10 MG TABLET 1 TAB PO 4XDAILY PAIN (Reported) Venlafaxine HCl (Venlafaxine HCl ER) 150 MG CAP.ER.24H 2 CAP PO DAILY MENTAL HEALTH (Reported) Zolpidem Tartrate 10 MG TABLET 1 TAB PO QPM SLEEP (Reported) Past History Travel History Traveled to [place] past 21 day No Medical History Blood Transfusion Hx: Yes Neurological: NONE EENT: tonsil infections Cardiovascular: CAD (s/p stent), myocardial infarction (w/ stent), PVD, DVT Respiratory: NONE, Gastrointestinal: NONE Hepatic: hepatitis C Renal: chronic kidney disease, patient has nephrotic range proteinuria which may be due to diabetes or Musculoskeletal: fracture, osteoarthritis, BULGING DISK L4/L5 OSTEOMYELITIS Psychiatric: anxiety, depression Endocrine: diabetes (type 1, insulin-dep), hypothyroidism Cancer(s): 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 Home Who Do You Live With? roommate Services at Home: Nursing Primary Language: Portuguese Smoking Status: Former Smoker ETOH Use: occasional use Illicit Drug Use: denies illicit drug use Functional Ability ADLs Independent: dressing, eating, toileting, bathing. Ambulation: independent IADLs Independent: shopping, housework, finances, food prep, telephone, transportation , medication admin. Review of Systems Review of Systems GI: Reports: constipation. All Other Systems: Reviewed and Negative Exam & Diagnostic Data Last 24 Hrs of Vital Signs/I&O Vital Signs Date Time Temp Pulse Resp B/P B/P Pulse O2 O2 Flow FiO2 Mean Ox Delivery Rate 03/13 1506 98.9 71 20 140/80 97 Room Air 03/13 0935 81 138/70 03/13 0806 97.9 81 18 138/70 95 Room Air 03/12 2323 97.4 78 16 132/82 92 Room Air 03/12 2141 138/72 03/12 2036 98.4 66 18 188/90 95 Room Air Intake & Output 03/13 1600 03/13 0800 06 0000 Intake Total 910 480 480 Output Total 700 1200 Balance 210 -720 480 Intake, IV 110 Intake, Oral 800 480 480 Output, Urine 700 1200 Physical Exam Other Physical Findings: She is awake and alert in no acute distress. She is afebrile. Skin reveals no rash. HEENT exam is negative. Neck is supple with no adenopathy. Lungs are clear. Heart regular rhythm with no murmur. Abdomen is obese, soft, nontender with positive bowel sounds. Back no CVA tenderness. Extremities right leg edema, with mild erythema, minimally tender to palpation, with superficial ulcerations over the anterior tibial aspect of the leg; right foot dressing intact; status post left BKA with prosthesis in place. Neuro is without focality. Last 24 Hours of Lab Results: Laboratory Tests 03/13 0735 Chemistry Sodium (137 - 145 mmol/L) 139 Potassium (3.5 - 5.1 mmol/L) 5.1 Chloride (98 - 107 mmol/L) 112 H Carbon Dioxide (22 - 30 mmol/L) 22 Anion Gap (5 - 16) 5 BUN (7 - 17 mg/dL) 41 H Creatinine (0.5 - 1.0 mg/dL) 1.7 H Estimated GFR (>60 ml/min) 31 L BUN/Creatinine Ratio (7 - 25 %) 24.1 Hematology CBC w Diff NO MAN DIFF REQ WBC (4.8 - 10.8 /CUMM) 9.2 RBC (4.20 - 5.40 /CUMM) 3.18 L Hgb (12.0 - 16.0 G/DL) 8.6 L Hct (37 - 47 %) 25.7 L MCV (81.0 - 99.0 FL) 80.8 L MCH (27.0 - 31.0 PG) 27.0 RDW (11.5 - 14.5 %) 14.8 H Plt Count (130 - 400 /CUMM) 258 MPV (7.4 - 10.4 FL) 7.8 Gran % (42.2 - 75.2 %) 78.4 H Lymphocytes % (20.5 - 51.1 %) 12.3 L Monocytes % (1.7 - 9.3 %) 6.2 Eosinophils % (0 - 5 %) 2.8 Basophils % (0.0 - 2.0 %) 0.3 Absolute Granulocytes (1.4 - 6.5 /CUMM) 7.2 H Absolute Lymphocytes (1.2 - 3.4 /CUMM) 1.1 L Absolute Monocytes (0.10 - 0.60 /CUMM) 0.6 Absolute Eosinophils (0.0 - 0.7 /CUMM) 0.3 Absolute Basophils (0.0 - 0.2 /CUMM) 0 PUBS MCHC (33.0 - 37.0 G/DL) 33.4 Last 24 Hours of Marcello Results: Blood cultures March 06 negative Diagnostic Data Recent Imaging Findings: X-ray of the right foot March 06 revealed postop changes with no acute process. X-ray of the right tibia-fibula March 06 negative. Doppler of the right lower extremity March 06 negative. MRI of the right foot March 07 revealed a 1.4 cm collection in the subcutaneous fat in the plantar soft tissue of the midfoot with no evidence of underlying osteomyelitis. X-ray of the left shoulder March 11 negative Assessment/Plan Assessment/Plan Impression: This is a 56-year-old woman with diabetes, chronic kidney disease, peripheral vascular disease, status post left BKA and right TMA, status post recent angioplasty of the right leg, admitted on March 06 because of a fever and increased pain and erythema of the right leg, found on admission to be afebrile with a marked leukocytosis with an MRI revealing a plantar space abscess in the right foot, status post I&D 4 days ago and closure of the wound yesterday. She has overall improved with normalization of her white blood cell count and with temperatures remaining normal on Unasyn. The MRI was negative for osteomyelitis and there was no evidence for bone involvement in the OR; therefore she should only require treatment for a soft tissue infection. Suggestion: 1. Discontinue Unasyn and begin Augmentin 500 mg po every 12 hours for 6 more days Consult Acknowledgment - Thank you for your consult request.
[2017-03-13 22:26] VITALS: BP 152/88
--- NOTE | 2017-03-14 05:58 | PN- Housestaff ---
See Addendum Subjective Follow-up For: Right lower extremity cellulitis Plantar space abscess Subjective: Patient seen and examined this morning. Remains afebrile and HDS POD #2 s/p I&D. No events reported overnight. Resting comfortably in bed with no acute complaints other than pain in the RLE at the procedure site. Denies any fever, chills, chest discomfort, palpitations, dyspnea, abdominal pain, nausea, vomiting, headache. Review of Systems Constitutional: Reports: see HPI. Objective Last 24 Hrs of Vital Signs/I&O Vital Signs Date Time Temp Pulse Resp B/P B/P Pulse O2 O2 Flow FiO2 Mean Ox Delivery Rate 03/14 0711 97.9 85 18 148/84 92 Room Air 03/13 2226 98.1 91 20 152/88 94 Room Air 03/13 1506 98.9 71 20 140/80 97 Room Air Intake & Output 03/14 1600 03/14 0800 06 0000 Intake Total 240 720 Output Total 300 300 Balance -60 420 Intake, Oral 240 720 Output, Urine 300 300 Physical Exam General Appearance: Alert, Oriented X3, Cooperative, No Acute Distress Other Physical Findings: Skin Erythema and warmth in the RLE. Dressing intact with no obvious bleeding or dischage. HEENT Atraumatic, PERRLA, EOMI, Mucous Membr. moist/pink Neck Supple Cardiovascular Regular Rate, Normal S1, Normal S2, No Murmurs Lungs Clear to Auscultation Abdomen Soft, No Tenderness Extremities LLE with prosthesis; RLE well dressed with no obvious bleeding/ dischage/leakage. Current Medications: Current Medications Sig/Jesse Start time Last Medication Dose Route Stop Time Status Admin Acetaminophen 650 MG Q6 PRN 03/06 2130 AC 03/07 PO 1544 Alprazolam 2 MG TID 03/06 2200 AC 03/14 PO 03/20 215 0844 Amoxicillin/ 500 MG Q12 03/13 2200 AC 03/14 Clavulanate Potassium PO 03/19 2300 0844 Ampicillin Sodium/ 1,500 MG Q12 03/07 1000 DC 03/13 Sulbactam Sodium IV 0942 Sodium Chloride 100 ML Aripiprazole 10 MG DAILY 03/07 1000 AC 03/14 PO 0844 Atorvastatin Calcium 80 MG 1700 03/07 1700 AC 03/13 PO 1728 Bisacodyl 10 MG ONCE ONE 03/14 1100 DC AR 03/14 1101 Clopidogrel Bisulfate 75 MG DAILY 03/07 1000 AC 03/14 PO 0843 Docusate Sodium 100 MG BID 03/09 1000 AC 03/14 PO 0844 Heparin Sodium 5,000 UNIT Q8 03/06 2200 AC 03/14 (Porcine) SC 0634 Insulin Aspart 0 TIDAC 03/13 0800 AC 03/14 SC 0744 Insulin Detemir 12 UNITS BID 03/11 2200 AC 03/14 SC 0844 Lactulose 20 GM BID 03/14 1000 AC 03/14 PO 1032 Levothyroxine Sodium 0.2 MG DAILY AC 03/07 0700 AC 03/14 PO 0634 Metoprolol Tartrate 50 MG DAILY 03/07 1000 AC 03/14 PO 0843 Mirtazapine 15 MG QPM 03/06 2200 AC 03/13 PO 2122 Oxycodone HCl 10 MG Q4 HRS NEEDED PRN 03/13 1030 AC 03/13 PO 2024 Oxycodone HCl 15 MG Q12 03/09 1000 AC 03/14 PO 0844 Polyethylene Glycol 17 GM DAILY 03/09 1000 AC 03/14 PO 0845 Senna/Docusate Sodium 2 TAB DAILY 03/13 1546 AC 03/14 PO 0843 Senna/Docusate Sodium 2 TAB DAILY PRN 03/09 0915 AC PO Sodium Chloride 1,000 ML BOLUS ONE 03/14 0930 AC 03/14 IV 03/14 1129 1016 Venlafaxine HCl 150 MG 0803/07 0800 AC 03/14 PO 0744 Zolpidem Tartrate 5 MG QPM 03/09 2200 AC 03/13 PO 2123 Last 24 Hrs of Lab/Marcello Results Last 24 Hrs of Labs/Mics: Laboratory Tests 03/14/17 0620: Anion Gap 6, Estimated GFR 26 L, BUN/Creatinine Ratio 18.5, CBC w Diff NO MAN DIFF REQ, RBC 3.15 L, MCV 80.9 L, MCH 27.0, RDW 14.8 H, MPV 7.8, Gran % 76.0 H, Lymphocytes % 15.6 L, Monocytes % 6.1, Eosinophils % 1.8, Basophils % 0.5, Absolute Granulocytes 8.1 H, Absolute Lymphocytes 1.7, Absolute Monocytes 0.7 H, Absolute Eosinophils 0.2, Absolute Basophils 0.1, PUBS MCHC 33.4 Assessment/Plan Assessment: 56-year-old female past medical history significant for insulin-dependent diabetes, PVD, right lower extremity toe amputation, CAD status post stenting, bipolar, substance abuse, depression, CK D likely secondary to diabetes and hepatitis C, BKA of her left lower extremity in 2013, thyroid cancer status post thyroidectomy, who was admitted to service for cellulitis in the RLE and plantar abscess in the right sole. # Sepsis 2/2 cellulitis - resolved Patient presented with leukocytosis (NURSE GENERAL DUTY 87%) of 26.2 with Tmax 100 and tachycardia up to 104. Infectious source attributed to cellulitis and abscess in the RLE. * Vitals protocol * Monitor for signs of infection and hemodynamic stability * Continue abx therapy as below * ID consulted, appreciate recs # RLE cellulitis over the rojas with a plantar abscess No radiographic evidence for osteomyelitis on x-ray. She currently remains HDS and afebrile with no SIRS s/p I&D by Dr. Nava on 03/08 and 03/12. Completed 7 days of IV Unasyn while inpatient. * Discharge on 6 days of Agumentin 500mg BID as per ID rec * Adequate pain control with oxycontin 15 mg PO BID with Roxicodone 10mg Q4P * Appreciate ID, podiatry and wound care recs # Acute on CKD 2/2 secondary to uncontrolled diabetes mellitus. Renal fx remaining stable around baseline currently. * Monitor BEP daily, trend renal fx - K and Cr trending up * Give 1 liter bolus of NS * Recheck BEP in 3-4 days outpatient # Diabetes mellitus * SSI with accuchecks * Diabetic diet # Hx of CAD, HTN * Cont home meds metoprolol 50mg PO QD, Plavix 75mg QD and Lipitor 80mg QD # Chronic medical conditions Patient carries a hx of hypothyroidism, depression/anxiety * Continue home meds - Full code - Moderate/severe pain pathway - Chemical DVT prophylaxis - Heart healthy diet Problem List: 1. Diabetes 2. Anxiety 3. Foot ulcer 4. Hypothyroidism (acquired) 5. CAD S/P percutaneous coronary angioplasty 6. Cellulitis of leg 7. Chronic kidney disease 8. Abscess 9. Open wound of leg Pain Ratin Pain Location: RLE Pain Goal: Pain 4 or less Pain Plan: Mild-moderate Tomorrow's Labs & Rationales: None Consulting Request: Consulting Specialty: Podiatry Consulting Physician: Dr. Wing
[2017-03-14 07:11] VITALS: BP 148/84
[2017-03-14] MEDS ORDERED: TOPROL XL50 M1 PO (07:41)
[2017-03-14] MEDS ORDERED: AUGMENTIN 500-1 EACH PO (07:41)
[2017-03-14 07:50] LABS: ABSOLUTE BASOPHIL COUNT 0.1 /CUMM (0.0-0.2); ABSOLUTE EOSINOPHIL COUNT 0.2 /CUMM (0.0-0.7); ABSOLUTE GRANULOCYTE CT 8.1 /CUMM (1.4-6.5); ABSOLUTE LYMPH COUNT 1.7 /CUMM (1.2-3.4); ABSOLUTE MONOCYTE COUNT 0.7 /CUMM (0.10-0.60); BASOPHIL % 0.5 % (0.0-2.0); EOSINOPHIL % 1.8 % (0-5); HEMATOCRIT 25.5 % (37-47); MEAN CORPUSCULAR HGB CONC 33.4 G/DL (33.0-37.0); MEAN CORPUSCULAR VOLUME 80.9 FL (81.0-99.0); MEAN PLATELET VOLUME 7.8 FL (7.4-10.4); PLATELET COUNT 260 /CUMM (130-400); RBC DISTRIBUTION WIDTH 14.8 % (11.5-14.5); RED BLOOD CELL CT 3.15 /CUMM (4.20-5.40); WHITE BLOOD CELL COUNT 10.7 /CUMM (4.8-10.8)
--- NOTE | 2017-03-14 08:20 | PN- Wound Care ---
Subjective Subjective: Patient feels improved right lower extremity erythema has completely resolved Objective Vital Signs and I&Os Vital Signs Result Date Time Pulse Ox 92 03/14 711 B/P 148/84 03/14 711 O2 Delivery Room Air 03/14 711 Temp 97.9 03/14 711 Pulse 85 03/14 711 Resp 18 03/14 711 Intake & Output 03/14 0000 03/13 1600 03/13 0800 Intake Total 720 910 480 Output Total 482 274 3720 Balance 420 210 -720 Intake, IV 110 Intake, Oral 720 800 480 Output, Urine 826 075 5669 Right lower extremity venous stasis ulcers have healed except for a minute 0.2 x 0.2 residual ulcer edema has improved with bedrest Impression/Plan Impression/Plan Impression/Plan: 56-year-old with chronic kidney disease diabetes peripheral vascular disease status post left BKA right TMA admitted with right lower extremity cellulitis and right plantar abscess. Right lower extremity venous stasis ulcers are markedly improved. Continue leg elevation daily Xeroform and cleansing. Please have podiatry clarify weightbearing status
--- NOTE | 2017-03-14 14:07 | PN- Student ---
Subjective Subjective: FOR TEACHING PURPOSES ONLY Subjective: 56 yo female with hx of DM, HTN, CKD, PVD, depression, anxiety presented to ED on 03/06/17 for right lower extremity cellulitis and plantar space abscess. Patient had procedure on right foot 2 nights ago for full thickness necrosis with open incision and drainage with debridement. She states no events last night. This morning, patient is drowsy and is going in and out of sleep. She feels like she "can't keep her balance" when she sits up and has "some chest pain." Right foot is still painful. She rates it as a 9/10 and describes it as a dull and sharp pain and her "heel hurts." Denies fever, chills, nausea, vomiting , dyspnea, and night sweats. Current Medications Sig/Jesse Start time Last Medication Dose Route Stop Time Status Admin Acetaminophen 650 MG Q6 PRN 03/06 2130 AC 03/07 PO 1544 Alprazolam 2 MG TID 03/06 2200 AC 03/14 PO 03/20 2158 0844 Amoxicillin/ 500 MG Q12 03/13 2200 AC 03/14 Clavulanate Potassium PO 03/19 2300 0844 Ampicillin Sodium/ 1,500 MG Q12 03/07 1000 DC 03/13 Sulbactam Sodium IV 0942 Sodium Chloride 100 ML Aripiprazole 10 MG DAILY 03/07 1000 AC 03/14 PO 0844 Atorvastatin Calcium 80 MG 1700 03/07 1700 AC 03/13 PO 1728 Bisacodyl 10 MG ONCE ONE 03/14 1145 CAN MO 03/14 1146 Bisacodyl 10 MG ONCE ONE 03/14 1100 DC 03/14 MO 03/14 1101 1141 Clopidogrel Bisulfate 75 MG DAILY 03/07 1000 AC 03/14 PO 0843 Docusate Sodium 100 MG BID 03/09 1000 AC 03/14 PO 0844 Heparin Sodium 5,000 UNIT Q8 03/06 2200 AC 03/14 (Porcine) SC 1337 Insulin Aspart 0 TIDAC 03/13 0800 AC 03/14 SC 1152 Insulin Detemir 12 UNITS BID 03/11 2200 AC 03/14 SC 0844 Lactulose 20 GM BID 03/14 1000 AC 03/14 PO 1032 Levothyroxine Sodium 0.2 MG DAILY AC 03/07 0700 AC 03/14 PO 0634 Metoprolol Tartrate 50 MG DAILY 03/07 1000 AC 03/14 PO 0843 Mirtazapine 15 MG QPM 03/06 2200 AC 03/13 PO 2122 Oxycodone HCl 10 MG Q4 HRS NEEDED PRN 03/13 1030 AC 03/14 PO 1339 Oxycodone HCl 15 MG Q12 03/09 1000 AC 03/14 PO 0844 Patient Medication 1 ED .STK-MED ONE 03/14 1214 DC Teaching ED 03/14 1215 Polyethylene Glycol 17 GM DAILY 03/09 1000 AC 03/14 PO 0845 Senna/Docusate Sodium 2 TAB DAILY 03/13 1546 AC 03/14 PO 0843 Senna/Docusate Sodium 2 TAB DAILY PRN 03/09 0915 AC PO Sodium Chloride 1,000 ML BOLUS ONE 03/14 0930 DC 03/14 IV 03/14 1129 1016 Venlafaxine HCl 150 MG 0800 03/07 0800 AC 03/14 PO 0744 Zolpidem Tartrate 5 MG QPM 03/09 2200 AC 03/13 PO 2123 Objective Objective: Physical Exam General: no acute distress Cardiac: regular rate and rhythm. No murmurs. Pulm: vesicular breath sounds bilaterally. No crackles, rales. Extremities: Left lower extremity with prosthesis. Right lower extremity swollen , surgical dressing with no signs of bleeding, pus, or drainage. No erythema and not tender or warm to palpation. Able to mobilize RLE. Vital Signs Date Time Temp Pulse Resp B/P B/P Pulse O2 O2 Flow FiO2 Mean Ox Delivery Rate 03/14 0711 97.9 85 18 148/84 92 Room Air 03/13 2226 98.1 91 20 152/88 94 Room Air 03/13 1506 98.9 71 20 140/80 97 Room Air Intake & Output 03/14 1600 03/14 0800 03/14 0000 Intake Total 1900 240 720 Output Total 500 300 300 Balance 1400 -60 420 Intake, IV 1000 Intake, Oral 900 240 720 Number 2 Bowel Movements Output, Urine 500 300 300 Results Results: Laboratory Tests 03/14/17 0620: Anion Gap 6, Estimated GFR 26 L, BUN/Creatinine Ratio 18.5, CBC w Diff NO MAN DIFF REQ, RBC 3.15 L, MCV 80.9 L, MCH 27.0, RDW 14.8 H, MPV 7.8, Gran % 76.0 H, Lymphocytes % 15.6 L, Monocytes % 6.1, Eosinophils % 1.8, Basophils % 0.5, Absolute Granulocytes 8.1 H, Absolute Lymphocytes 1.7, Absolute Monocytes 0.7 H, Absolute Eosinophils 0.2, Absolute Basophils 0.1, PUBS MCHC 33.4 03/13/17 0735: Anion Gap 5, Estimated GFR 31 L, BUN/Creatinine Ratio 24.1, CBC w Diff NO MAN DIFF REQ, RBC 3.18 L, MCV 80.8 L, MCH 27.0, RDW 14.8 H, MPV 7.8, Gran % 78.4 H, Lymphocytes % 12.3 L, Monocytes % 6.2, Eosinophils % 2.8, Basophils % 0.3, Absolute Granulocytes 7.2 H, Absolute Lymphocytes 1.1 L, Absolute Monocytes 0.6, Absolute Eosinophils 0.3, Absolute Basophils 0, PUBS MCHC 33.4 03/12/17 0620: Anion Gap 5, Estimated GFR 31 L, BUN/Creatinine Ratio 27.6 H, CBC w Diff NO MAN DIFF REQ, RBC 3.22 L, MCV 80.3 L, MCH 27.2, RDW 15.0 H, MPV 7.9, Gran % 73.8, Lymphocytes % 13.3 L, Monocytes % 8.8, Eosinophils % 3.7, Basophils % 0.4 , Absolute Granulocytes 6.4, Absolute Lymphocytes 1.2, Absolute Monocytes 0.8 H , Absolute Eosinophils 0.3, Absolute Basophils 0, PUBS MCHC 33.9 Assessment/Plan Assessment: My assessment is a 56 yo female with a PMHx of DM, PVD, right lower extremity toe amputation, CAD status post stenting, bipolar, substance abuse, depression, CKD, hepatitis C, BKA of her left lower extremity in 2013, thyroid cancer status post thyroidectomy, who presented with cellulitis in the RLE and plantar abscess in the right sole. Cellulitis and abscess can be secondary to infection, immunosuppresion from DM, obesity, venous insufficiency. Patient is now stable with RLE improving and pain is being managed with meds. Plan: 1. RLE cellulitis and abscess * check surgical dressing for signs of infection. DVT prophylaxis. Keep extremities elevated * monitor vitals and O2 * consult PT to determine weight baring status of RLE * plan for discharge for rehab if patient remains stable * follow up with PCP and podiatry following discharge 2. Chronic conditions - DM, CKD, CAD, hypothyroidism, depression, anxiety * continue home medications * health counselor patient on lifestyle modifications, such as diabetic diet
[2017-03-14 14:43] VITALS: BP 142/80
--- NOTE | 2017-03-14 15:19 | PN- Infect Dx ---
Subjective Subjective: Afebrile. She does report pain on the bottom of her right foot. Objective Last 24 Hrs of Vital Signs/I&O Vital Signs Date Time Temp Pulse Resp B/P B/P Pulse O2 O2 Flow FiO2 Mean Ox Delivery Rate 03/14 1443 98.4 70 20 142/80 93 Room Air 03/14 0711 97.9 85 18 148/84 92 Room Air 03/13 2226 98.1 91 20 152/88 94 Room Air Intake & Output 03/14 1600 03/14 0800 03/14 0000 Intake Total 1900 240 720 Output Total 500 300 300 Balance 1400 -60 420 Intake, IV 1000 Intake, Oral 900 240 720 Number 2 Bowel Movements Output, Urine 500 300 300 Physical Exam Other Physical Findings: She appears comfortable in no acute distress Extremities right leg swelling persists, with minimal erythema; right foot dressing intact Results Last 24 Hours of Lab Results: Laboratory Tests 03/14 0620 Chemistry Sodium (137 - 145 mmol/L) 136 L Potassium (3.5 - 5.1 mmol/L) 5.4 H Chloride (98 - 107 mmol/L) 107 Carbon Dioxide (22 - 30 mmol/L) 23 Anion Gap (5 - 16) 6 BUN (7 - 17 mg/dL) 37 H Creatinine (0.5 - 1.0 mg/dL) 2.0 H Estimated GFR (>60 ml/min) 26 L BUN/Creatinine Ratio (7 - 25 %) 18.5 Hematology CBC w Diff NO MAN DIFF REQ WBC (4.8 - 10.8 /CUMM) 10.7 RBC (4.20 - 5.40 /CUMM) 3.15 L Hgb (12.0 - 16.0 G/DL) 8.5 L Hct (37 - 47 %) 25.5 L MCV (81.0 - 99.0 FL) 80.9 L MCH (27.0 - 31.0 PG) 27.0 RDW (11.5 - 14.5 %) 14.8 H Plt Count (130 - 400 /CUMM) 260 MPV (7.4 - 10.4 FL) 7.8 Gran % (42.2 - 75.2 %) 76.0 H Lymphocytes % (20.5 - 51.1 %) 15.6 L Monocytes % (1.7 - 9.3 %) 6.1 Eosinophils % (0 - 5 %) 1.8 Basophils % (0.0 - 2.0 %) 0.5 Absolute Granulocytes (1.4 - 6.5 /CUMM) 8.1 H Absolute Lymphocytes (1.2 - 3.4 /CUMM) 1.7 Absolute Monocytes (0.10 - 0.60 /CUMM) 0.7 H Absolute Eosinophils (0.0 - 0.7 /CUMM) 0.2 Absolute Basophils (0.0 - 0.2 /CUMM) 0.1 PUBS MCHC (33.0 - 37.0 G/DL) 33.4 Last 24 Hours of Marcello Results: No recent cultures Assessment/Plan Impression: Overall stable with temperatures remaining normal and white blood cell count minimally elevated on Augmentin Day 8 of treatment for an infection of the right foot, status post I&D of a plantar space abscess 5 days ago and closure of the wound 2 days ago, with her MRI negative for osteomyelitis. Suggestion: 1. Continue Augmentin for 5 more days
[2017-03-14 17:51] VITALS: BP 142/80
== END 2017-03-14 18:50 | DRG 854 ==
LOC: ERH 15:10 → 2NB 19:52 → ERHI 19:52 → 2NB 19:52 → ENRESERV 20:44 → 2NB 22:51 → ENTRNSPT 03-12 20:20 → CMPTRNSPT 03-12 21:28 → ENPENDDIS 03-14 08:34 → 2NB 03-14 18:50
PROVIDERS: Emergency Medicine; Student in an Organized Health Care Education/Training Program; ADMIT Internal Medicine
PROC: 0JBQ0ZZ Excision of Right Foot Subcutaneous Tissue and Fascia, Open Approach (ICD-10-PCS; principal; 2017-03-08)
PROC: 0JQQ0ZZ Repair Right Foot Subcutaneous Tissue and Fascia, Open Approach (ICD-10-PCS; 2017-03-12)
DX: A41.9 Sepsis, unspecified organism (principal); N17.9 Acute kidney failure, unspecified; E10.22 Type 1 diabetes mellitus with diabetic chronic kidney disease; E10.40 Type 1 diabetes mellitus with diabetic neuropathy, unspecified; L03.115 Cellulitis of right lower limb; L97.811 Non-pressure chronic ulcer of other part of right lower leg limited to breakdown of skin; N18.3 Chronic kidney disease, stage 3 (moderate); L03.90 Cellulitis, unspecified; L02.611 Cutaneous abscess of right foot; Z79.4 Long term (current) use of insulin; F14.10 Cocaine abuse, uncomplicated; F11.10 Opioid abuse, uncomplicated; Z89.512 Acquired absence of left leg below knee; Z89.421 Acquired absence of other right toe(s); D63.1 Anemia in chronic kidney disease
CPT/HCPCS: 2NBSP; 2NSBP; 75657; 36415; 73030-LT; 73590-RT; 73630-RT; 82436; 83010; 87040; 93005; 93010; 96374; 97110-GO; 97116-GO; 97161-GP; 97530-GO; G0463; J0131; J0401; J1644; J1815; J2001; J3490; J7040; J7042